=== PATIENT | female | born 1960 | race Caucasian/White ===

== ENCOUNTER 2020-09-17 08:23 | Outpatient (REF) | payer BC, SELFPAY ==
[2020-09-17 08:54] LABS: MANUAL DIFF FLAG NO
[2020-09-17 08:57] LABS: Basophils Percent Auto 0.5 % (0-2); Eosinophils Absolute Auto 0.1 X10*3/uL (0.0-0.4); Eosinophils Percent Auto 1.3 % (0-4); Hemoglobin 13.5 g/dl (12.0-16.0); Imm Gran Abs Auto 0.02 X10*3/uL (0.00-0.03); Imm Gran Pct Auto 0.4 % (0.0-0.4); Lymphocytes Absolute Auto 2.4 X10*3/uL (1.2-4.9); Lymphocytes Percent Auto 43.1 % (20-40); Mean Corpuscular HGB Conc 32.9 g/dl (31.0-35.0); Mean Corpuscular Hemoglobin 30.2 pg (27.0-33.0); Mean Corpuscular Volume 91.7 fL (80-98); Mean Platelet Volume 9.1 fL (9.4-12.3); Monocytes Absolute Auto 0.4 X10*3/uL (0.1-1.2); Neutrophils Absolute Auto 2.6 X10*3/uL (2.0-8.3); Neutrophils Percent Auto 47.7 % (45-73); Platelet Count 226 X10*3/uL (160-400); Red Blood Count 4.47 X10*6/uL (4.20-5.50); Red Cell Distribution Width 12.2 % (11.0-16.0); White Blood Count 5.5 X10*3/uL (4.8-10.8)
[2020-09-17 08:58] LABS: Glucose Urine UA NEG (NEG); Leukocyte Esterase Urine 2+ (NEG); Nitrite Urine NEG (NEG); Specific Gravity - Urine 1.015 (1.005-1.025); Urine Blood NEG (NEG); Urine Ketones NEG (NEG); Urine Protein NEG (NEG-TRACE)
[2020-09-17 08:59] LABS: Appearance Urine CLEAR; Color Urine YELLOW
[2020-09-17 09:13] LABS: Estimated Average Glucose 108 mg/dL; Hemoglobin A1c % 5.4 %
[2020-09-17 09:15] LABS: Alanine Aminotransferase 32 U/L (0-31); Albumin Level 4.5 g/dL (3.5-5.0); Alkaline Phosphatase 107 U/L (39-117); Anion Gap 12 (12-20); Aspartate Amino Transferase 23 U/L (5-31); Bilirubin Total 0.5 mg/dL (0.0-1.0); Blood Urea Nitrogen 14 mg/dL (9-16); Calcium 9.2 mg/dL (8.4-10.2); Carbon Dioxide 27 mmol/L (22-29); Chloride 105 mmol/L (96-108); Cholesterol 256 mg/dL; Estimated Glomerular Filt Rate > 60; Glucose Fasting 97 mg/dL (60-99); HDL Cholesterol 55 mg/dL; LDL Cholesterol Calculated 154 mg/dl; Potassium 3.8 mmol/l (3.3-5.1); Sodium 140 mmol/L (135-145); Total Protein 7.4 g/dL (6.5-8.0); Triglycerides 237 mg/dL
[2020-09-17 09:17] LABS: RBC Urine 0 /HPF (0); Squamous Epithelial Cell Urine TRACE /LPF
[2020-09-17 09:36] LABS: Thyroid Stimulating Hormone 0.93 uIU/mL (0.32-4.0)
== END 2020-09-17 08:24 | disposition home or self-care (01) ==
LOC: HO.LAB 08:23
PROVIDERS: PCP Physician Assistant; Visit Provider Physician Assistant
DX: E78.00 Pure hypercholesterolemia, unspecified (principal); Z13.1 Encounter for screening for diabetes mellitus; Z13.29 Encounter for screening for other suspected endocrine disorder
CPT/HCPCS: 36415; 80053; 80061; 81001; 83036; 84443; 85025

== ENCOUNTER 2021-09-26 08:38 | Outpatient (REF) | payer BC, SELFPAY ==
[2021-09-26 09:20] LABS: Hematocrit 40.7 % (37.0-47.0); Hemoglobin 13.4 g/dl (12.0-16.0); Mean Corpuscular HGB Conc 32.9 g/dl (31.0-35.0); Mean Corpuscular Hemoglobin 29.7 pg (27.0-33.0); Mean Corpuscular Volume 90.2 fL (80.0-98.0); Mean Platelet Volume 9.2 fL (9.4-12.3); Platelet Count 240 X10*3/uL (160-400); Red Blood Count 4.51 X10*6/uL (4.20-5.50); Red Cell Distribution Width 12.3 % (11.0-16.0); White Blood Count 5.8 X10*3/uL (4.8-10.8)
[2021-09-26 09:55] LABS: Alanine Aminotransferase 31 U/L (0-31); Albumin Level 4.5 g/dL (3.5-5.0); Alkaline Phosphatase 99 U/L (39-117); Anion Gap 11 (12-20); Aspartate Amino Transferase 25 U/L (5-31); Bilirubin Total 0.4 mg/dL (0.0-1.0); Blood Urea Nitrogen 14 mg/dL (9-16); Calcium 9.8 mg/dL (8.4-10.2); Carbon Dioxide 27 mmol/L (22-29); Chloride 106 mmol/L (96-108); Cholesterol 264 mg/dL; Estimated Glomerular Filt Rate > 60; Glucose Fasting 101 mg/dL (60-99); HDL Cholesterol 56 mg/dL; LDL Cholesterol Calculated 171 mg/dl; Sodium 140 mmol/L (135-145); Total Protein 7.3 g/dL (6.5-8.0); Triglycerides 189 mg/dL
[2021-09-26 10:20] LABS: TSH reflex Free T4 0.81 uIU/mL (0.32-4.0)
== END 2021-09-26 08:39 | disposition home or self-care (01) ==
LOC: HO.LAB 08:38
PROVIDERS: PCP Internal Medicine; Visit Provider Physician Assistant
DX: I10 Essential (primary) hypertension (principal); E78.2 Mixed hyperlipidemia
CPT/HCPCS: 36415; 80053; 80061; 84443; 85027

== ENCOUNTER 2022-02-24 08:16 | Outpatient (REF) | payer BC, SELFPAY ==
[2022-02-24 09:47] LABS: Hemoglobin 12.9 g/dl (12.0-16.0); Mean Corpuscular HGB Conc 32.3 g/dl (31.0-35.0); Mean Corpuscular Hemoglobin 29.5 pg (27.0-33.0); Mean Corpuscular Volume 91.5 fL (80.0-98.0); Mean Platelet Volume 9.3 fL (9.4-12.3); Platelet Count 242 X10*3/uL (160-400); Red Blood Count 4.37 X10*6/uL (4.20-5.50); Red Cell Distribution Width 12.3 % (11.0-16.0)
[2022-02-24 10:10] LABS: Estimated Average Glucose 108 mg/dL; Hemoglobin A1c % 5.4 %
[2022-02-24 10:21] LABS: Alanine Aminotransferase 27 U/L (0-31); Albumin Level 4.4 g/dL (3.5-5.0); Alkaline Phosphatase 98 U/L (39-117); Anion Gap 11 (12-20); Aspartate Amino Transferase 20 U/L (5-31); Bilirubin Total 0.6 mg/dL (0.0-1.0); Blood Urea Nitrogen 15 mg/dL (9-16); Calcium 9.6 mg/dL (8.4-10.2); Carbon Dioxide 27 mmol/L (22-29); Chloride 105 mmol/L (96-108); Cholesterol 245 mg/dL; Estimated Glomerular Filt Rate > 60; Glucose Fasting 93 mg/dL (60-99); HDL Cholesterol 59 mg/dL; LDL Cholesterol Calculated 171 mg/dl; Potassium 4.2 mmol/L (3.3-5.1); Sodium 139 mmol/L (135-145); Total Protein 7.4 g/dL (6.5-8.0); Triglycerides 76 mg/dL
[2022-02-24 10:42] LABS: TSH reflex Free T4 0.89 uIU/mL (0.32-4.0)
== END 2022-02-24 08:17 | disposition home or self-care (01) ==
LOC: HO.LAB 08:16
PROVIDERS: PCP Internal Medicine; Visit Provider Physician Assistant
DX: Z00.00 Encounter for general adult medical examination without abnormal findings (principal); Z13.220 Encounter for screening for lipoid disorders; Z13.29 Encounter for screening for other suspected endocrine disorder
CPT/HCPCS: 36415; 80053; 80061; 83036; 84443; 85027

== ENCOUNTER 2022-12-08 08:32 | Outpatient (REF) | payer BC, SELFPAY ==
[2022-12-08 08:49] LABS: Hematocrit 43.7 % (37.0-47.0); Hemoglobin 14.2 g/dl (12.0-16.0); Mean Corpuscular HGB Conc 32.5 g/dl (31.0-35.0); Mean Corpuscular Hemoglobin 29.4 pg (27.0-33.0); Mean Corpuscular Volume 90.5 fL (80.0-98.0); Platelet Count 246 X10*3/uL (160-400); Red Blood Count 4.83 X10*6/uL (4.20-5.50); Red Cell Distribution Width 12.4 % (11.0-16.0); White Blood Count 6.2 X10*3/uL (4.8-10.8)
[2022-12-08 09:25] LABS: Alanine Aminotransferase 27 U/L (0-31); Albumin Level 4.7 g/dL (3.5-5.0); Alkaline Phosphatase 111 U/L (39-117); Anion Gap 13 (12-20); Aspartate Amino Transferase 22 U/L (5-31); Bilirubin Total 0.6 mg/dL (0.0-1.0); Blood Urea Nitrogen 13 mg/dL (9-16); Calcium 9.5 mg/dL (8.4-10.2); Carbon Dioxide 28 mmol/L (22-29); Chloride 105 mmol/L (96-108); Cholesterol 243 mg/dL; Estimated Glomerular Filt Rate > 60; Glucose Fasting 97 mg/dL (60-99); HDL Cholesterol 58 mg/dL; LDL Cholesterol Calculated 165 mg/dl; Sodium 142 mmol/L (135-145); Total Protein 7.4 g/dL (6.5-8.0); Triglycerides 104 mg/dL
[2022-12-08 09:44] LABS: TSH reflex Free T4 0.99 uIU/mL (0.32-4.0)
== END 2022-12-08 08:33 | disposition home or self-care (01) ==
LOC: HO.LAB 08:32
PROVIDERS: PCP Internal Medicine; Visit Provider Physician Assistant
DX: Z13.220 Encounter for screening for lipoid disorders (principal); Z13.29 Encounter for screening for other suspected endocrine disorder; I10 Essential (primary) hypertension; E78.2 Mixed hyperlipidemia
CPT/HCPCS: 36415; 80053; 80061; 84443; 85027

== ENCOUNTER 2023-07-27 08:22 | Outpatient (REF) | payer BC, SELFPAY ==
[2023-07-27 08:39] LABS: Hematocrit 39.6 % (37.0-47.0); Mean Corpuscular HGB Conc 32.8 g/dl (31.0-35.0); Mean Corpuscular Hemoglobin 29.7 pg (27.0-33.0); Mean Corpuscular Volume 90.6 fL (80.0-98.0); Mean Platelet Volume 9.1 fL (9.4-12.3); Platelet Count 221 X10*3/uL (160-400); Red Blood Count 4.37 X10*6/uL (4.20-5.50); Red Cell Distribution Width 12.2 % (11.0-16.0); White Blood Count 5.6 X10*3/uL (4.8-10.8)
[2023-07-27 09:27] LABS: Creatinine Urine 88.85 mg/dL; Microalbum/Creatinine Ratio Ur 6.7 ug/mg cr (<30)
[2023-07-27 09:27] LABS: Alanine Aminotransferase 24 U/L (0-31); Albumin Level 4.4 g/dL (3.5-5.0); Alkaline Phosphatase 108 U/L (39-117); Anion Gap 13 (12-20); Aspartate Amino Transferase 21 U/L (5-31); Bilirubin Total 0.4 mg/dL (0.0-1.0); Blood Urea Nitrogen 13 mg/dL (9-16); Calcium 9.8 mg/dL (8.4-10.2); Carbon Dioxide 26 mmol/L (22-29); Chloride 107 mmol/L (96-108); Cholesterol 222 mg/dL (<200); Estimated Glomerular Filt Rate > 60; Glucose Fasting 96 mg/dL (60-99); HDL Cholesterol 57 mg/dL (>40); LDL Cholesterol Calculated 149 mg/dL (<100); Potassium 3.7 mmol/L (3.3-5.1); Sodium 142 mmol/L (135-145); Total Protein 7.5 g/dL (6.5-8.0); Triglycerides 81 mg/dL (<150)
[2023-07-27 09:45] LABS: TSH reflex Free T4 0.83 uIU/mL (0.32-4.0)
== END 2023-07-27 08:23 | disposition home or self-care (01) ==
LOC: HO.LAB 08:22
PROVIDERS: PCP Physician Assistant; Visit Provider Physician Assistant
DX: I10 Essential (primary) hypertension (principal); E78.2 Mixed hyperlipidemia
CPT/HCPCS: 36415; 80053; 80061; 82043; 82570; 84443; 85027

== ENCOUNTER 2023-07-29 14:06 | Outpatient (AMB) | payer BC, SELFPAY ==
--- NOTE | 2023-07-29 14:09 | A.OFFPC_ITS ---
Vital Signs 07/29/23 14:10 Height 5 ft Weight 143 lb 4 oz BMI 28.0 BP 118/70 Blood Pressure Location Lt brachial Position Sitting Pulse 95 Pulse Source Pulse Oximeter Pulse Oximetry (%) 98 Oxygen Delivery Method Room Air Intake Visit Reasons: f/u HLD Intake Note: Patient is here to follow up on HLD. Lab results. Complaint of right shoulder pain ongoing for a month worse at night time Hand Plug Shaper Required: No Relish Maker: Not Required per policy Accompanied by: Self / Same As Patient Allergies No Known Allergies Allergy (Verified 07/29/23 14:18) Medication List - Last Reconciled 07/29/23 by Jag Paredes PA-C ascorbic acid (vitamin C) 500 mg PO DAILY blood pressure test kit-large As directed calcium carbonate-vitamin D3 600 mg-12.5 mcg (500 unit) (Calcium 600 with Vitamin D3) caps PO BID omega-3 fatty acids (Fish Oil Concentrate) 1,000 mg PO DAILY vitamin B complex (B Complex-Vitamin B12 tablet) 1 tab PO DAILY Tobacco use date assessed: 07/29/23 Dental Screening Dental Screen Date: 07/29/23 Did you have a dental visit in the last 12 months?: Yes Did you have a dental problem in the last 6 months where you did not have access to dental care?: No Was dental information given to patient?: Patient has dentist HPI f/u HLD HPI Details Daria is 63 y/o F here today for follow-up visit l. Pt has a pmhx significant for GERD, Hyperchol. Concern--> reports she has been dealing lot of job stress which in those moments does experience some chest pain. She attributes this to her stress. Report having higher blood pressures at these times as well.. We did discuss possibly getting an EKG and cardiac stress test though would like to hold off for now. otherwise no family history of coronary artery disease and her chest discomforts or only evident during times of high stress. ?? .. Hyperlipidemia:? Most recent lipid panel improved.? Patient has been working extensively on lifestyle to help reduce her cholesterol and triglycerides. ?Of note has lost weight since last office visit. . Elevated blood pressure reading:? Has been monitoring her blood pressure at home and is getting readings of 120-130 systolic.. ? Today in office blood pressure acceptable.? Likely has an element of white coat hypertension.? Will continue to work on lifestyle and forgo starting low- dose blood pressure medication at this time. Of note patient did emergency room visit and October of 2022 due to elevated blood pressure readings. She attributes her elevated blood pressure to increased stress in her life and her job. Laboratory Tests 07/27/23 07/27/23 07/27/23 08:29 08:29 08:30 RBC 4.37 Creatinine 0.62 Cholesterol 222 H LDL Cholesterol, C alc 149 H TSH 0.83 Urine Microalbumin 6.0 PFSH Surgical History History of D&C History of hysterectomy Family History Father No problems noted. Mother Stroke Family/Other Breast cancer Social History Housing: House Alcohol intake: current Alcohol intake frequency: holidays/special occasions only Patient Tobacco Use Status: Never used Tobacco Tobacco use type: Cigarette e-Cigarette/Vaping Use: Never Used Second Hand Smoke Exposure: No Current occupational status: employed Current occupation: [employer] Cognitive needs: No Hearing needs: No Vision needs: Yes Questionnaire Thrive Questionnaire Date Thrive assessed: 12/11/22 MELODIE-7 AMB Questionnaire MELODIE-7 Date MELODIE - 7 assessed: 12/11/22 Source: Developed by Drs. Jordy Hampton, Hannah Reveles, Yusef Mejias and colleagues, with an educational teddy from [employer]. Review of Systems Const Denies headache(s) Eyes Denies loss of vision ENT Denies vertigo, Denies dizziness, Denies headache(s) and Denies sore throat Card Denies chest pain, Denies leg edema and Denies lightheadedness Resp Denies cough, Denies hemoptysis and Denies wheezing GI Denies abdominal pain, Denies melena, Denies constipation, Denies diarrhea and Denies vomiting Denies urinary frequency, Denies dysuria and Denies urinary urgency Musc Denies arthralgias, Denies joint swelling, Denies numbness and Denies tingling Neuro Denies Abnormal speech present, Denies behavioral changes, Denies vertigo, Denies dizziness, Denies headache(s), Denies loss of vision, Denies memory loss, Denies numbness and Denies tingling Psych Denies anxiety, Denies behavioral changes, Denies depression, Denies memory loss and Denies panic attacks Paras/Lymph Denies easy bleeding and Denies easy bruising Aller/Immun Denies wheezing Physical exam (Primary Care) Vital Signs: Last Vital Signs Pulse 95 07/29/23 14:10 BP 118/70 07/29/23 14:10 Pulse Ox 98 07/29/23 14:10 Oxygen Delivery Method Room Air 07/29/23 14:10 BMI result Body Mass Index 28.0 Tobacco/Smoking Status: Tobacco use Status Tobacco use date assessed 07/29/23 07/29/23 14:14 Patient Tobacco Use Status Never used Tobacco 07/29/23 14:14 Tobacco use type Cigarette 07/29/23 14:14 e-Cigarette/Vaping Use Never Used 07/29/23 14:14 Thrive Assessment: Date of Thrive Assessment Date Thrive assessed 12/11/22 07/29/23 14:14 Const General: healthy appearing, no acute distress, alert and awake Nutritional Appearance: well nourished Orientation/consciousness: oriented to person, oriented to place and oriented to time HENMT Ears: TM's normal bilaterally General nose exam: Normal nasal mucous membranes and turbinates present Eyes Conjunctivae: conjunctivae normal Sclerae: sclerae normal Pupils: Equal, round and reactive pupils present Neck Neck: Yes no lymphadenopathy and Yes no JVD Thyroid: Thyroid normal Carotids: no bruits Resp Effort & Inspection: normal respiratory effort and not tachypneic Auscultation: no crackles, no rales, no rhonchi and no wheezes Cardio Rate: regular rate Rhythm: regular rhythm Heart sounds: no murmurs and normal S1 and S2 GI Palpation (GI): Soft to palpation, nontender, no hepatomegaly and no splenomegaly Auscultation: normal bowel sounds Skin General skin exam: no rashes or lesions noted and dry skin Neuro General: oriented to person, oriented to place and oriented to time Cranial nerves: Yes Equal, round and reactive pupils present Speech: No Abnormal speech present Gait exam (Neuro): Normal gait present Motor exam (neuro): no tremor noted Extrem Right upper extremity: full ROM Left upper extremity: full ROM Right lower extremity: full ROM; no edema Left lower extremity: full ROM; no edema Psych Mental Status: mental status grossly normal Speech and movement: Normal speech and movement present Affect: normal affect Attitude: cooperative Thought process: Normal thought process present Assessment and Plan Assessment & Plan (1) Hyperlipidemia: Code(s): E78.5 - Hyperlipidemia, unspecified Qualifiers: Hyperlipidemia type: mixed hyperlipidemia Qualified Code(s): E78.2 - Mixed hyperlipidemia Plan: Patient's fasting lipid panel showing much improved total cholesterol. She continues to work on lifestyle modifications to reduce her cholesterol in her diet. She is not interested in starting any statin therapy for primary prevention of CV disease. Goal LDL to be below 160 (2) HTN (hypertension): Code(s): I10 - Essential (primary) hypertension Qualifiers: Hypertension type: primary hypertension Qualified Code(s): I10 - Essential (primary) hypertension Plan: Patient has a history of intermittent elevated blood pressures. Recently had elevations in a posture pressure of to 160 that she attributes to increased stress in her life. She has been monitoring blood pressure on a daily basis since and notes 110s to 130 systolic consistently. Will hold off on starting antihypertensive medication and patient will continue to work on lifestyle modifications on reducing salt in her diet and stress in her life. Goal blood pressure to remain below 140/90 (3) Right shoulder pain: Code(s): M25.511 - Pain in right shoulder Qualifiers: Chronicity: unspecified Qualified Code(s): M25.511 - Pain in right shoulder Plan: Reports having right shoulder pain that radiates down to her elbow and forearm. She reports when she moves her elbow more often the pain gets better. Has been using topical analgesics which has been helpful. She is interested in getting x-ray to evaluate for arthritis. (4) Chest pain: Code(s): R07.9 - Chest pain, unspecified Qualifiers: Chest pain type: unspecified Qualified Code(s): R07.9 - Chest pain, unspecified Plan: As per HPI patient has been experiencing a few episodes of chest pain in the setting of increased stress and anxiety. We discussed possibly getting EKG and cardiac stress test though patient would like to hold off for now Orders: Orders Complete Blood Count no Diff 07/29/23 E78.2 - Mixed hyperlipidemia XR shoulder RT 1V 07/29/23 M25.511 - Pain in right shoulder Microalbumin, Random (w Creat) 07/29/23 I10 - Essential (primary) hypertension Comprehensive [place]. Panel Fast 07/29/23 E78.2 - Mixed hyperlipidemia Coding Level of Care Code Est Pt Level 4 (76607) Diagnoses Mixed hyperlipidemia E78.2 Hyperlipidemia type: mixed hyperlipidemia Primary hypertension I10 Hypertension type: primary hypertension Right shoulder pain, unspecified chronicity M25.511 Chronicity: unspecified Chest pain, unspecified type R07.9 Chest pain type: unspecified
[2023-07-29 14:10] VITALS: BP 118/70; PULSE 95; O2SAT 98; BMI 28.0
== END 2023-07-29 14:38 | disposition home or self-care (01) ==
PROVIDERS: PCP Internal Medicine; Visit Provider Physician Assistant
DX: E78.2 Mixed hyperlipidemia (principal); I10 Essential (primary) hypertension; M25.511 Pain in right shoulder; R07.9 Chest pain, unspecified
CPT/HCPCS: 99214

== ENCOUNTER 2023-08-01 11:30 | Outpatient (REF) | payer BC, SELFPAY ==
--- NOTE | ~2023-08-01 | XR_ITS ---
EXAMINATION: XR SHOULDER, RIGHT CLINICAL INFORMATION: Pain in right shoulder COMPARISON: Right shoulder 10/03/2018 TECHNIQUE: AP external rotation, Grashey, scapular Y, and axillary views of the right shoulder. FINDINGS: The bones intact. No fracture or dislocation. Glenohumeral and acromioclavicular alignment is anatomic. The glenohumeral joint is intact. The acromiohumeral interval is maintained. Acromioclavicular joint is normal in appearance. No abnormal soft tissue calcifications. XR/XR shoulder RT 1V IMPRESSION: No bony abnormality.
== END 2023-08-01 11:31 | disposition home or self-care (01) ==
LOC: HO.XRAY 11:30
PROVIDERS: PCP Physician Assistant; Visit Provider Physician Assistant
DX: M25.511 Pain in right shoulder (principal)
CPT/HCPCS: 73020

== ENCOUNTER 2023-12-14 08:25 | Outpatient (REF) | payer BC, SELFPAY ==
[2023-12-14 12:02] LABS: Hematocrit 41.9 % (37.0-47.0); Hemoglobin 13.9 g/dl (12.0-16.0); Mean Corpuscular HGB Conc 33.2 g/dl (31.0-35.0); Mean Corpuscular Hemoglobin 30.3 pg (27.0-33.0); Mean Corpuscular Volume 91.3 fL (80.0-98.0); Mean Platelet Volume 9.7 fL (9.4-12.3); Platelet Count 241 X10*3/uL (160-400); Red Blood Count 4.59 X10*6/uL (4.20-5.50); Red Cell Distribution Width 12.4 % (11.0-16.0); White Blood Count 5.8 X10*3/uL (4.8-10.8)
[2023-12-14 12:29] LABS: Alanine Aminotransferase 25 U/L (0-31); Albumin Level 4.6 g/dL (3.5-5.0); Alkaline Phosphatase 105 U/L (39-117); Anion Gap 11 (12-20); Aspartate Amino Transferase 20 U/L (5-31); Bilirubin Total 0.5 mg/dL (0.0-1.0); Blood Urea Nitrogen 14 mg/dL (9-16); Calcium 9.6 mg/dL (8.4-10.2); Carbon Dioxide 27 mmol/L (22-29); Chloride 108 mmol/L (96-108); Estimated Glomerular Filt Rate > 60; Glucose Fasting 95 mg/dL (60-99); Potassium 4.1 mmol/L (3.3-5.1); Sodium 142 mmol/L (135-145); Total Protein 7.8 g/dL (6.5-8.0)
[2023-12-14 13:05] LABS: Creatinine Urine 82.07 mg/dL; Microalbum/Creatinine Ratio Ur 10.9 ug/mg cr (<30)
== END 2023-12-14 08:26 | disposition home or self-care (01) ==
LOC: HO.HMGCLDS 08:25
PROVIDERS: PCP Physician Assistant; Visit Provider Physician Assistant
DX: E78.2 Mixed hyperlipidemia (principal); I10 Essential (primary) hypertension
CPT/HCPCS: 36415; 80053; 82043; 82570; 85027

== ENCOUNTER 2023-12-17 08:01 | Outpatient (AMB) | payer BC, SELFPAY ==
--- NOTE | 2023-12-17 08:08 | MHC.PC.OV ---
Vital Signs 12/17/23 08:09 Height 5 ft Weight 146 lb BMI 28.5 BP 130/80 Blood Pressure Location Lt brachial Position Sitting Pulse 89 Pulse Source Pulse Oximeter Pulse Oximetry (%) 99 Oxygen Delivery Method Room Air Intake Visit Reasons: Annual Exam Intake Note: Patient here for a physical exam Felt Checker Required: No Accompanied by: Self / Same As Patient Allergies No Known Allergies Allergy (Verified 12/17/23 08:15) Medication List - Last Reconciled 12/17/23 by CAMERON Salgado-Guillermo ascorbic acid (vitamin C) 500 mg PO DAILY blood pressure test kit-large As directed calcium carbonate-vitamin D3 600 mg-12.5 mcg (500 unit) (Calcium 600 with Vitamin D3) caps PO BID omega-3 fatty acids (Fish Oil Concentrate) 1,000 mg PO DAILY vitamin B complex (B Complex-Vitamin B12 tablet) 1 tab PO DAILY Tobacco use date assessed: 12/17/23 Dental Screening Dental Screen Date: 12/17/23 Did you have a dental visit in the last 12 months?: Yes Did you have a dental problem in the last 6 months where you did not have access to dental care?: No Was dental information given to patient?: Patient has dentist HPI Annual Exam HPI Details Daria is 63 y/o F here today for a routine annual physical Pt has a pmhx significant for GERD, hyperlipidemia. Concern--> continues to feel somewhat stressed out due to her stressful job. She plans on retiring this July 2024. ?? .. Hyperlipidemia:? Most recent lipid panel improved.? Patient has been working extensively on lifestyle to help reduce her cholesterol and triglycerides. ?Of note has lost weight since last office visit. . Elevated blood pressure reading:? Has been monitoring her blood pressure at home and is getting readings of 120-130 systolic.. ? Today in office blood pressure acceptable.? Likely has an element of white coat hypertension.? Will continue to work on lifestyle and forgo starting low-dose blood pressure medication at this time. ?Colonoscopy: 2016-normal repeat in 10 years ? mammo: gets mamm[facility] ? 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 Has had partial hysterectomy. // Vaccine: Declines flu, up-to-date with Tdap, Needs Shingles vaccine Laboratory Tests 03/11/23 10/28/23 03/16/24 08:37 08:29 09:08 RBC 4.59 Creatinine Cholesterol 243 222 H LDL Cholesterol, C alc 165 149 H Urine Microalbumin 12/14/23 09:08 RBC Creatinine 0.72 Cholesterol LDL Cholesterol, C alc Urine Microalbumin 9.0 [facility] Medical History (Updated 12/18/23 @ 07:24 by Jag Paredes PA-C) Right shoulder pain Surgical History History of D&C History of hysterectomy Family History Father No problems noted. Mother Stroke Family/Other Breast cancer Social History (Updated 12/17/23 @ 08:21 by Jag Paredes PA-C) Housing: House Alcohol intake: current Alcohol intake frequency: holidays/special occasions only Patient Tobacco Use Status: Never used Tobacco e-Cigarette/Vaping Use: Never Used Second Hand Smoke Exposure: No service: No Current occupational status: employed Current occupation: [employer] Current occupational exposures/hazards: No Cognitive needs: No Hearing needs: No Vision needs: Yes Questionnaire PHQ-9 Over the last 2 weeks, how often have you been bothered by any of the following problems? 1. Little interest or pleasure in doing things: not at all 2. Feeling down, depressed, or hopeless: not at all 3. Trouble falling or staying asleep, or sleeping too much: not at all 4. Feeling tired or having little energy: not at all 5. Poor appetite or overeating: not at all 6. Feeling bad about yourself - or that you are a failure or have let yourself or your family down: not at all 7. Trouble concentrating on things, such as reading the newspaper or watching television: not at all 8. Moving or speaking so slowly that other people could have noticed. Or the opposite - being so fidgety or restless that you have been moving around a lot more than usual: not at all 9. Thoughts that you would be better off or of hurting yourself in some way: not at all Total score: 0 Depression Screening Interpretation: Negative Depression Screening Done: Yes 74852 - PHQ-9 Billing: Yes Source: Developed by Drs. Jordy L. Berta, Yusef Benson and colleagues, with an educational teddy from [employer]. Thrive Questionnaire Date Thrive assessed: 12/17/23 I am a: Patient What is your living situation today?: I have a steady place to live Within the past 12 months, did the food you bought not last and you didn't have the money to get more?: Never true Within the past 12 months, did you worry whether your food would run out before you got money to buy more?: Never true Do you have trouble paying for medicines?: No Do you have trouble getting transportation to medical appointments?: No Do you have trouble paying your heating and electricity bill?: No Do you have trouble taking care of your child, family member or friend?: No Do you have trouble with day-to-day activities such as bathing, preparing meals, shopping, managing finances, etc.?: No Are you currently unemployed and looking for a job?: No Are you interested in more education?: No Please select the resources that you would like help with: None Currently or been in a relationship where the following occur: no concerns reported THRIVE Score: 0 AUDIT C Alcohol Use Questionnaire (AUDIT-C) 1. How often do you have a drink containing alcohol?: Monthly or less 2. How many drinks containing alcohol do you have on a typical day when you are drinking?: 1 or 2 3. How often do you have six or more drinks on one occasion?: Never Total Score: 1 MELODIE-7 AMB Questionnaire MELODIE-7 Date MELODIE - 7 assessed: 12/17/23 Feeling nervous, anxious, or on edge: 0 = Not at all Not being able to stop or control worryin = Not at all Worrying too much about different things: 0 = Not at all Trouble relaxin = Not at all Being so restless that it is hard to sit still: 0 = Not at all Becoming easily annoyed or irritable: 0 = Not at all Feeling afraid as if something awful might happen: 0 = Not at all Total MELODIE-7 score (0-4 normal; 5-9 mild; 10-14 moderate; 15-21 severe): 0 Source: Developed by Drs. Jordy Hampton, Yusef Benson and colleagues, with an educational teddy from [employer]. MELODIE-7 Assessment Billing MELODIE-7 Assessment Tool: MELODIE-7 Assessment 20475 Review of Systems Const Denies body aches, Denies chills, Denies excessive sweating, Denies fatigue, Denies fever(s) and Denies headache(s) Eyes Denies blurry vision ENT Denies dysphagia, Denies vertigo, Denies dizziness, Denies headache(s), Denies hearing loss and Denies tinnitus Card Denies chest pain, Denies chest pain with activity, Denies syncope, Denies irregular heart rhythm and Denies dyspnea Resp Denies chest congestion, Denies cough, Denies hemoptysis, Denies dyspnea and Denies wheezing GI Denies abdominal pain, Denies melena, Denies hematochezia, Denies coffee ground emesis, Denies dysphagia, Denies diarrhea, Denies nausea and Denies vomiting Denies urinary frequency, Denies dysuria, Denies urinary hesitancy and Denies urinary urgency Musc Denies arthralgias, Denies limited range of motion, Denies muscle cramps and Denies muscle weakness Skin/Breast Denies rash and Denies skin ulcer Neuro Denies Abnormal speech present, Denies confusion, Denies vertigo, Denies dizziness, Denies syncope, Denies headache(s), Denies memory loss and Denies seizure-like activity Psych Denies anxiety, Denies confusion, Denies depression, Denies memory loss, Denies panic attacks and Denies paranoia Endo Denies excessive sweating, Denies fatigue, Denies flushing, Denies polydipsia and Denies polyuria Aller/Immun Denies wheezing Physical exam (Primary Care) Vital Signs: Last Vital Signs Pulse 89 12/17/23 08:09 BP 130/80 12/17/23 08:09 Pulse Ox 99 12/17/23 08:09 Oxygen Delivery Method Room Air 12/17/23 08:09 BMI result Body Mass Index 28.5 Tobacco/Smoking Status: Tobacco use Status Tobacco use date assessed 12/17/23 12/17/23 08:14 Patient Tobacco Use Status Never used Tobacco 12/17/23 08:20 Tobacco use type 12/17/23 08:14 e-Cigarette/Vaping Use Never Used 12/17/23 08:20 PHQ-9: PHQ-9 Score PHQ-9: Total score 0 12/17/23 08:18 Depression Screening Interpretation: Negative Thrive Assessment: Date of Thrive Assessment Date Thrive assessed 12/17/23 12/17/23 08:14 Currently or been in a relationship where the following occur: no concerns reported Const General: cooperative, comfortable, no acute distress, alert and awake; No confusion Orientation/consciousness: oriented to person, oriented to place, patient oriented x3 and No confusion HENMT Head: Yes normocephalic Ears: external ears normal and TM's normal bilaterally Face and sinus: No sinus tenderness Mouth: Normal oral and palatal mucosa present and tongue normal Teeth and gingiva: dentition normal and gingiva normal Throat: Yes posterior oropharynx normal, Yes tonsils normal and Yes uvula midline Eyes Conjunctivae: conjunctivae normal Sclerae: sclerae normal Pupils: Equal, round and reactive pupils present EOM: EOMs intact bilaterally Direct Ophthalmoscopy: No no photophobia Neck Neck: Yes no lymphadenopathy, No tender and Yes no JVD Thyroid: Thyroid normal Carotids: no bruits Chest Chest palpation & inspection: no tenderness Resp Effort & Inspection: normal respiratory effort, no audible wheezes, not labored and no stridor Auscultation: no crackles, no rales, no rhonchi and no wheezes Cardio Jugular venous distension: no JVD Rate: regular rate, not bradycardic and not tachycardic Rhythm: regular rhythm Bruits: no carotid bruits Peripheral pulses: Peripheral pulses 2+ throughout GI Inspection: Yes normal to inspection, No abdominal wall ecchymosis and No visible herniation Palpation (GI): Soft to palpation, nontender, no guarding, not rigid and No hepatosplenomegaly present Auscultation: normoactive bowel sounds General: Yes no CVA tenderness Back/Spine/Pelvis Back: no CVA tenderness and No back tenderness Cervical Spine: cervical ROM normal Thoracic/Lumbar Spine: thoracic and lumbar spine normal to inspection, straight leg raise negative bilaterally, No thoraco-lumbar ROM limited and No lumbar spinal tenderness Skin Lesions: no lesions Rashes: no rashes Wounds: no wounds Neuro General: oriented to person, oriented to place, patient oriented x3, CN's II-XI intact bilaterally and No confusion Cranial nerves: Yes Equal, round and reactive pupils present and Yes Normal accommodation reflex present Cognition (Neuro): normal cognition Speech: No Abnormal speech present Gait exam (Neuro): Normal gait present Motor exam (neuro): 5/5 motor strength present throughout Extrem Right upper extremity: full ROM; no cyanosis Left upper extremity: full ROM; no cyanosis Right lower extremity: no edema Left lower extremity: no edema Psych Appearance: grossly normal Mental Status: mental status grossly normal Affect: normal affect Attitude: cooperative Thought process: Normal thought process present Assessment and Plan Assessment & Plan (1) Annual physical exam: Code(s): Z00.00 - Encounter for general adult medical examination without abnormal findings (2) Hyperlipidemia: Code(s): E78.5 - Hyperlipidemia, unspecified Qualifiers: Hyperlipidemia type: mixed hyperlipidemia Qualified Code(s): E78.2 - Mixed hyperlipidemia Plan: Patient's fasting lipid panel showing much improved total cholesterol. She continues to work on lifestyle modifications to reduce her cholesterol in her diet. She is not interested in starting any statin therapy for primary prevention of CV disease. Goal LDL to be below 160 (3) HTN (hypertension): Code(s): I10 - Essential (primary) hypertension Qualifiers: Hypertension type: primary hypertension Qualified Code(s): I10 - Essential (primary) hypertension Plan: Patient has a history of intermittent elevated blood pressures. Today's blood pressure in office acceptable.. Recently had elevations in a posture pressure of to 160 that she attributes to increased stress in her life. She has been monitoring blood pressure on a daily basis since and notes 110s to 130 systolic consistently. Will hold off on starting antihypertensive medication and patient will continue to work on lifestyle modifications on reducing salt in her diet and stress in her life. Goal blood pressure to remain below 140/90 Orders: Orders MM screening mammo BI 12/16/23 Z12.31 - Encounter for screening mammogram for malignant neoplasm of breast Comprehensive [place]. Panel Fast 12/17/23 I10 - Essential (primary) hypertension Lipid Panel 12/17/23 E78.2 - Mixed hyperlipidemia Complete Blood Count no Diff 12/17/23 I10 - Essential (primary) hypertension Coding Level of Care Code Est Pt Prev Care 40-64y(59591) Diagnoses Annual physical exam Z00.00 Mixed hyperlipidemia E78.2 Hyperlipidemia type: mixed hyperlipidemia Primary hypertension I10 Hypertension type: primary hypertension Additional Codes MELODIE-7 Assessment Billing - MELODIE-7 Assessment Tool: MELODIE-7 Assessment [id number] ([id number])
[2023-12-17 08:09] VITALS: BP 130/80; PULSE 89; O2SAT 99; BMI 28.5
== END 2023-12-17 08:45 | disposition home or self-care (01) ==
PROVIDERS: Visit Provider Physician Assistant
DX: Z00.00 Encounter for general adult medical examination without abnormal findings (principal); E78.2 Mixed hyperlipidemia; I10 Essential (primary) hypertension
CPT/HCPCS: 99396

== ENCOUNTER 2024-06-30 08:32 | Outpatient (REF) | payer BC, SELFPAY ==
[2024-06-30 10:05] LABS: Hematocrit 40.1 % (37.0-47.0); Hemoglobin 13.3 g/dl (12.0-16.0); Mean Corpuscular HGB Conc 33.2 g/dl (31.0-35.0); Mean Corpuscular Hemoglobin 30.4 pg (27.0-33.0); Mean Corpuscular Volume 91.8 fL (80.0-98.0); Mean Platelet Volume 9.6 fL (9.4-12.3); Platelet Count 242 X10*3/uL (160-400); Red Blood Count 4.37 X10*6/uL (4.20-5.50); Red Cell Distribution Width 12.2 % (11.0-16.0); White Blood Count 5.6 X10*3/uL (4.8-10.8)
[2024-06-30 10:26] LABS: Alanine Aminotransferase 23 U/L (0-31); Albumin Level 4.5 g/dL (3.5-5.0); Alkaline Phosphatase 111 U/L (39-117); Anion Gap 10 (12-20); Aspartate Amino Transferase 18 U/L (5-31); Bilirubin Total 0.4 mg/dL (0.0-1.0); Blood Urea Nitrogen 12 mg/dL (9-16); Calcium 9.6 mg/dL (8.4-10.2); Carbon Dioxide 27 mmol/L (22-29); Chloride 109 mmol/L (96-108); Cholesterol 215 mg/dL (<200); Estimated Glomerular Filt Rate > 60; Glucose Fasting 98 mg/dL (60-99); HDL Cholesterol 47 mg/dL (>40); LDL Cholesterol Calculated 132 mg/dL (<100); Potassium 3.6 mmol/L (3.3-5.1); Sodium 142 mmol/L (135-145); Total Protein 7.4 g/dL (6.5-8.0); Triglycerides 181 mg/dL (<150)
== END 2024-06-30 08:33 | disposition home or self-care (01) ==
LOC: HO.HMGCLDS 08:32
PROVIDERS: PCP Physician Assistant; Visit Provider Physician Assistant
DX: E78.2 Mixed hyperlipidemia (principal); I10 Essential (primary) hypertension
CPT/HCPCS: 36415; 80053; 80061; 85027

== ENCOUNTER 2024-07-01 08:00 | Outpatient (AMB) | payer BC, SELFPAY ==
--- NOTE | 2024-07-01 08:02 | A.OFFPC_ITS ---
Vital Signs 07/01/24 08:04 Height 5 ft Weight 146 lb BMI 28.5 BP 126/80 Blood Pressure Location Lt brachial Position Sitting Intake Visit Reasons: f/u HLD Count Room Clerk Required: No Accompanied by: Self / Same As Patient Allergies No Known Allergies Allergy (Verified 07/01/24 08:15) Medication List - Last Reconciled 07/01/24 by Jag Paredes PA-C ascorbic acid (vitamin C) 500 mg PO DAILY blood pressure test kit-large As directed calcium carbonate-vitamin D3 600 mg-12.5 mcg (500 unit) (Calcium 600 with Vitamin D3) caps PO BID omega-3 fatty acids (Fish Oil Concentrate) 1,000 mg PO DAILY vitamin B complex (B Complex-Vitamin B12 tablet) 1 tab PO DAILY Tobacco use date assessed: 12/17/23 Dental Screening Dental Screen Date: 07/01/24 Did you have a dental visit in the last 12 months?: Yes Did you have a dental problem in the last 6 months where you did not have access to dental care?: No Was dental information given to patient?: Patient has dentist HPI f/u HLD HPI Details Daria is 63 y/o F here today for a follow-up visit Pt has a pmhx significant for GERD, hyperlipidemia. ?? .. Hyperlipidemia:? Most recent lipid panel continues to improve, cholesterol still borderline.? Patient has been working extensively on lifestyle to help reduce her cholesterol and triglycerides. ?Of note has lost weight since last office visit. . Elevated blood pressure reading:? Blood pressure today in office acceptable. Has been monitoring her blood pressure at home and is getting readings of 120- 130 systolic.. Will continue to work on lifestyle and forgo starting low-dose blood pressure medication at this time. [facility] Medical History Right shoulder pain Surgical History History of D&C History of hysterectomy Family History Father No problems noted. Mother Stroke Family/Other Breast cancer Social History Housing: House Alcohol intake: current Alcohol intake frequency: holidays/special occasions only Patient Tobacco Use Status: Never used Tobacco e-Cigarette/Vaping Use: Never Used Second Hand Smoke Exposure: No service: No Current occupational status: employed Current occupation: [employer] Current occupational exposures/hazards: No Cognitive needs: No Hearing needs: No Vision needs: Yes Questionnaire Thrive Questionnaire Date Thrive assessed: 12/17/23 Are you currently unemployed and looking for a job?: No AUDIT C Alcohol Use Questionnaire (AUDIT-C) 2. How many drinks containing alcohol do you have on a typical day when you are drinking?: 1 or 2 3. How often do you have six or more drinks on one occasion?: Never Total Score: 0 MELODIE-7 AMB Questionnaire MELODIE-7 Date MELODIE - 7 assessed: 12/17/23 Source: Developed by Drs. Jordy Hampton, Hannah Reveles, Yusef Mejias and colleagues, with an educational teddy from [employer]. Review of Systems Const Denies headache(s) Eyes Denies loss of vision ENT Denies vertigo, Denies dizziness, Denies headache(s) and Denies sore throat Card Denies chest pain, Denies leg edema and Denies lightheadedness Resp Denies cough, Denies hemoptysis and Denies wheezing GI Denies abdominal pain, Denies melena, Denies constipation, Denies diarrhea and Denies vomiting Denies urinary frequency, Denies dysuria and Denies urinary urgency Musc Denies arthralgias, Denies joint swelling, Denies numbness and Denies tingling Neuro Denies Abnormal speech present, Denies behavioral changes, Denies vertigo, Denies dizziness, Denies headache(s), Denies loss of vision, Denies memory loss, Denies numbness and Denies tingling Psych Denies anxiety, Denies behavioral changes, Denies depression, Denies memory loss and Denies panic attacks Paras/Lymph Denies easy bleeding and Denies easy bruising Aller/Immun Denies wheezing Physical exam (Primary Care) Vital Signs: Last Vital Signs BP 126/80 07/01/24 08:04 BMI result Body Mass Index 28.5 Tobacco/Smoking Status: Tobacco use Status Tobacco use date assessed 12/17/23 07/01/24 08:06 Patient Tobacco Use Status Never used Tobacco 07/01/24 08:06 Tobacco use type 12/17/23 08:44 e-Cigarette/Vaping Use Never Used 07/01/24 08:06 Thrive Assessment: Date of Thrive Assessment Date Thrive assessed 12/17/23 07/01/24 08:06 Const General: healthy appearing, no acute distress, alert and awake Nutritional Appearance: well nourished Orientation/consciousness: oriented to person, oriented to place and oriented to time HENMT Ears: TM's normal bilaterally General nose exam: Normal nasal mucous membranes and turbinates present Eyes Conjunctivae: conjunctivae normal Sclerae: sclerae normal Pupils: Equal, round and reactive pupils present Neck Neck: Yes no lymphadenopathy and Yes no JVD Thyroid: Thyroid normal Carotids: no bruits Resp Effort & Inspection: normal respiratory effort and not tachypneic Auscultation: no crackles, no rales, no rhonchi and no wheezes Cardio Rate: regular rate Rhythm: regular rhythm Heart sounds: no murmurs and normal S1 and S2 GI Palpation (GI): Soft to palpation, nontender, no hepatomegaly and no splenomegaly Auscultation: normal bowel sounds Skin General skin exam: no rashes or lesions noted and dry skin Neuro General: oriented to person, oriented to place and oriented to time Cranial nerves: Yes Equal, round and reactive pupils present Speech: No Abnormal speech present Gait exam (Neuro): Normal gait present Motor exam (neuro): no tremor noted Extrem Right upper extremity: full ROM Left upper extremity: full ROM Right lower extremity: full ROM; no edema Left lower extremity: full ROM; no edema Psych Mental Status: mental status grossly normal Speech and movement: Normal speech and movement present Affect: normal affect Attitude: cooperative Thought process: Normal thought process present Office Procedures Flu Questionnaire Does the patient have a severe egg allergy?: No Immunizations Fluarix Triv [id number] (PF) 45 mcg (15 mcg x 3)/0.5 mL IM syringe Performing Provider: Jag Paredes PA-C [place] [facility] [place] [facility] [place] [facility] Documented (not given) by: PAMELA Quintanilla on 07/01/24 08:07 Reason Not Given: Patient Refused Coding Level of Care Code Est Pt Level 4 (76700) Diagnoses Mixed hyperlipidemia E78.2 Hyperlipidemia type: mixed hyperlipidemia Primary hypertension I10 Hypertension type: primary hypertension Assessment & Plan Assessment & Plan (1) Hyperlipidemia: Code(s): E78.5 - Hyperlipidemia, unspecified Category: Medical Qualifiers: Hyperlipidemia type: mixed hyperlipidemia Qualified Code(s): E78.2 - Mixed hyperlipidemia Plan: Patient's lipid panel continues to improve with lifestyle modifications. She has a low CV risk though does report her brother recently had triple bypass surgery in his 70s.. She declines my offers today to start statin therapy. she would like to work on lifestyle to reduce her cholesterol. (2) HTN (hypertension): Code(s): I10 - Essential (primary) hypertension Category: Medical Qualifiers: Hypertension type: primary hypertension Qualified Code(s): I10 - Essential (primary) hypertension Plan: Patient's blood pressure acceptable today in office. Her blood pressure has been controlled with lifestyle and dietary modifications. Goal blood pressure is to remain below 140/90 Orders: Orders Influenza [id number] Immunization Today Z23 - Encounter for immunization Comprehensive [place]. Panel Fast 6 Months I10 - Essential (primary) hypertension Lipid Panel 6 Months E78.2 - Mixed hyperlipidemia Microalbumin, Random (w Creat) 6 Months I10 - Essential (primary) hypertension Complete Blood Count no Diff 6 Months I10 - Essential (primary) hypertension Patient Instructions: Goal: Blood pressure to remain below 140/90, total cholesterol to be below 200 Barriers: Adherence to physical activity and healthy eating habits
[2024-07-01 08:04] VITALS: BP 126/80; BMI 28.5
== END 2024-07-01 08:26 | disposition home or self-care (01) ==
PROVIDERS: PCP Physician Assistant; Visit Provider Physician Assistant
DX: E78.2 Mixed hyperlipidemia (principal); I10 Essential (primary) hypertension; Z23 Encounter for immunization

== ENCOUNTER → 2024-07-01 08:00 | Outpatient (BNVA) | payer BC, SELFPAY | PROVIDERS: PCP Physician Assistant; Visit Provider Physician Assistant | DX: E78.2 Mixed hyperlipidemia (principal); I10 Essential (primary) hypertension; Z28.21 Immunization not carried out because of patient refusal | CPT/HCPCS: 90471 ==

== ENCOUNTER 2024-09-22 11:05 | Outpatient (AMB) | payer BC, SELFPAY ==
[2024-09-22 11:21] VITALS: BP 152/90; PULSE 94; O2SAT 99; BMI 28.3
--- NOTE | 2024-09-22 11:21 | A.OFFPC_ITS ---
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 Required: No Accompanied by: Self / Same As Patient Allergies No Known Allergies Allergy (Verified 09/22/24 11:25) Medication List - Last Reconciled 09/22/24 by Jag Paredes PA-C ascorbic acid (vitamin C) 500 mg PO DAILY azithromycin For 250 mg dose pack: take 500 mg today (day 1), then 250 mg for 4 days (days 2-5) PO blood pressure test kit-large As directed calcium carbonate-vitamin D3 600 mg-12.5 mcg (500 unit) (Calcium with Vit D3) caps PO BID omega-3 fatty acids (Fish Oil Concentrate) 1,000 mg PO DAILY vitamin B complex (B Complex-Vitamin B12 tablet) 1 tab PO DAILY Tobacco use date assessed: 12/17/23 Dental Screening Dental Screen Date: 07/01/24 HPI viral infection for over 3 months HPI Details The patient is a 64-year-old female presenting with a chronic cough. The initial onset of symptoms was following a viral infection in June. The cough persisted after the viral symptoms subsided. Initially, the patient observed yellowish-greenish phlegm, which over time became clear. She reports that her cough is not incessant but is particularly active in the mornings and sometimes after eating, contributing to a sensation of a tickle in her throat. In addition, she described occasional nocturnal coughing. Her past attempts at treatment included azithromycin with minimal improvement. The patient denies fever and has a noted blood pressure reading of 152/90, which is slightly elevated. She does not smoke and has no history of asthma. Family exposure to walking pneumonia was noted. The cough has disrupted her daily life to a limited extent, as she has not taken any sick days from work. The patient also reported trying allergy medications and has recently switched to using Alison, but experienced increased dryness in her throat. She has used various [id number] remedies for symptom relief without significant success [facility] Medical History Right shoulder pain Surgical History History of D&C History of hysterectomy Family History Father No problems noted. Mother Stroke Family/Other Breast cancer Social History Housing: House Alcohol intake: current Alcohol intake frequency: holidays/special occasions only Patient Tobacco Use Status: Never used Tobacco e-Cigarette/Vaping Use: Never Used Second Hand Smoke Exposure: No service: No Current occupational status: employed Current occupation: [employer] Current occupational exposures/hazards: No Cognitive needs: No Hearing needs: No Vision needs: Yes Questionnaire PHQ-9 Over the last 2 weeks, how often have you been bothered by any of the following problems? 1. Little interest or pleasure in doing things: not at all 2. Feeling down, depressed, or hopeless: not at all 3. Trouble falling or staying asleep, or sleeping too much: not at all 4. Feeling tired or having little energy: not at all 5. Poor appetite or overeating: not at all 6. Feeling bad about yourself - or that you are a failure or have let yourself or your family down: not at all 7. Trouble concentrating on things, such as reading the newspaper or watching television: not at all 8. Moving or speaking so slowly that other people could have noticed. Or the opposite - being so fidgety or restless that you have been moving around a lot more than usual: not at all 9. Thoughts that you would be better off or of hurting yourself in some way: not at all Total score: 0 Depression Screening Interpretation: Negative Depression Screening Done: Yes 17877 - PHQ-9 Billing: Yes Source: Developed by Drs. Jordy Hampton, Hannah Reveles, Yusef Mejias and colleagues, with an educational teddy from [employer]. Thrive Questionnaire Date Thrive assessed: 09/22/24 I am a: Patient What is your living situation today?: I have a steady place to live Within the past 12 months, did the food you bought not last and you didn't have the money to get more?: Never true Within the past 12 months, did you worry whether your food would run out before you got money to buy more?: Never true Do you have trouble paying for medicines?: No Do you have trouble getting transportation to medical appointments?: No Do you have trouble paying your heating and electricity bill?: No Do you have trouble taking care of your child, family member or friend?: No Do you have trouble with day-to-day activities such as bathing, preparing meals, shopping, managing finances, etc.?: No Are you currently unemployed and looking for a job?: No Are you interested in more education?: No Please select the resources that you would like help with: None Currently or been in a relationship where the following occur: No concerns reported THRIVE Score: 0 AUDIT C Alcohol Use Questionnaire (AUDIT-C) 1. How often do you have a drink containing alcohol?: Monthly or less 2. How many drinks containing alcohol do you have on a typical day when you are drinking?: 1 or 2 3. How often do you have six or more drinks on one occasion?: Never Total Score: 1 MELODIE-7 AMB Questionnaire MELODIE-7 Date MELODIE - 7 assessed: 09/22/24 Feeling nervous, anxious, or on edge: 0 = Not at all Not being able to stop or control worryin = Not at all Worrying too much about different things: 0 = Not at all Trouble relaxin = Not at all Being so restless that it is hard to sit still: 0 = Not at all Becoming easily annoyed or irritable: 0 = Not at all Feeling afraid as if something awful might happen: 0 = Not at all Total MELODIE-7 score (0-4 normal; 5-9 mild; 10-14 moderate; 15-21 severe): 0 Source: Developed by Drs. Jordy Hampton, Hannah Reveles, Yusef Mejias and colleagues, with an educational teddy from [employer]. MELODIE-7 Assessment Billing MELODIE-7 Assessment Tool: MELODIE-7 Assessment 84756 Review of Systems Const Denies headache(s) Eyes Denies loss of vision ENT Denies vertigo, Denies dizziness, Denies headache(s) and Denies sore throat Card Denies chest pain, Denies leg edema and Denies lightheadedness Resp Reports cough, Denies hemoptysis and Denies wheezing GI Denies abdominal pain, Denies melena, Denies constipation, Denies diarrhea and Denies vomiting Denies urinary frequency, Denies dysuria and Denies urinary urgency Musc Denies arthralgias, Denies joint swelling, Denies numbness and Denies tingling Neuro Denies Abnormal speech present, Denies behavioral changes, Denies vertigo, Denies dizziness, Denies headache(s), Denies loss of vision, Denies memory loss, Denies numbness and Denies tingling Psych Denies anxiety, Denies behavioral changes, Denies depression, Denies memory loss and Denies panic attacks Paras/Lymph Denies easy bleeding and Denies easy bruising Aller/Immun Denies wheezing Physical exam (Primary Care) Vital Signs: Last Vital Signs Pulse 94 09/22/24 11:21 BP 152/90 H 09/22/24 11:21 Pulse Ox 99 09/22/24 11:21 Oxygen Delivery Method Room Air 09/22/24 11:21 BMI result Body Mass Index 28.3 Tobacco/Smoking Status: Tobacco use Status Tobacco use date assessed 12/17/23 09/22/24 11:23 Patient Tobacco Use Status Never used Tobacco 09/22/24 11:23 Tobacco use type 12/17/23 08:44 e-Cigarette/Vaping Use Never Used 09/22/24 11:23 PHQ-9: PHQ-9 Score PHQ-9: Total score 0 09/22/24 11:23 Depression Screening Interpretation: Negative Thrive Assessment: Date of Thrive Assessment Date Thrive assessed 09/22/24 09/22/24 11:23 Currently or been in a relationship where the following occur: No concerns reported Const General: healthy appearing, no acute distress, alert and awake Nutritional Appearance: well nourished Orientation/consciousness: oriented to person, oriented to place and oriented to time HENMT Ears: TM's normal bilaterally General nose exam: Normal nasal mucous membranes and turbinates present Eyes Conjunctivae: conjunctivae normal Sclerae: sclerae normal Pupils: Equal, round and reactive pupils present Neck Neck: Yes no lymphadenopathy and Yes no JVD Thyroid: Thyroid normal Carotids: no bruits Resp Other: OCCASIONAL DRY COUGH DURING EXAM Effort & Inspection: normal respiratory effort, Actively coughing and not tachypneic Auscultation: no crackles, no rales, no rhonchi and no wheezes Cardio Rate: regular rate Rhythm: regular rhythm Heart sounds: no murmurs and normal S1 and S2 GI Palpation (GI): Soft to palpation, nontender, no hepatomegaly and no splenomegaly Auscultation: normal bowel sounds Skin General skin exam: no rashes or lesions noted and dry skin Neuro General: oriented to person, oriented to place and oriented to time Cranial nerves: Yes Equal, round and reactive pupils present Speech: No Abnormal speech present Gait exam (Neuro): Normal gait present Motor exam (neuro): no tremor noted Extrem Right upper extremity: full ROM Left upper extremity: full ROM Right lower extremity: full ROM; no edema Left lower extremity: full ROM; no edema Psych Mental Status: mental status grossly normal Speech and movement: Normal speech and movement present Affect: normal affect Attitude: cooperative Thought process: Normal thought process present Coding Level of Care Code Est Pt Level 3 (12656) Diagnoses Chronic cough R05.3 Additional Codes MELODIE-7 Assessment Billing - MELODIE-7 Assessment Tool: MELODIE-7 Assessment 00838 ([id number]) PHQ-9 - 82522 - PHQ-9 Billing: Yes ([id number]) Assessment & Plan Assessment & Plan (1) Chronic cough: Code(s): R05.3 - Chronic cough Category: Medical Plan: I discussed with the patient that her chronic cough is likely a post-viral syndrome, which may include postnasal drip and sinus-related issues. We reviewed the possibility of a sinus infection and potential need for further antibiotic treatment. A chest x-ray was suggested to exclude walking pneumonia. The patient opted for the prescription of oral prednisone, which may alleviate upper respiratory inflammation. I explained the effects and potential side effects of prednisone and the cough suppressant containing codeine, including the importance of feeling drowsy. Orders: Orders XR chest 2V Today R05.3 - Chronic cough Medications: New prednisone Take 3 tablets x3 days, 2 tablets x3 days, 1 tablet x3 days 10 mg PO DIRECTED 9 days 18 tabs 0RF R05.3 - Chronic cough codeine-guaifenesin 10-100 mg/5 mL 5 mL PO Q6H 5 days PRN 120 mL 0RF cough R05.3 - Chronic cough doxycycline monohydrate 100 mg PO BID 7 days 14 caps 0RF J32.9 - Chronic sinusitis, unspecified
== END 2024-09-22 11:45 | disposition home or self-care (01) ==
PROVIDERS: PCP Physician Assistant; Visit Provider Physician Assistant
DX: R05.3 Chronic cough (principal)

== ENCOUNTER → 2024-09-22 11:05 | Outpatient (BNVA) | payer BC, SELFPAY | PROVIDERS: PCP Physician Assistant; Visit Provider Physician Assistant | DX: R05.3 Chronic cough (principal) | CPT/HCPCS: 96127 ==

== ENCOUNTER 2024-12-22 08:46 | Outpatient (REF) | payer BC, SELFPAY ==
[2024-12-22 10:48] LABS: Hematocrit 40.4 % (37.0-47.0); Hemoglobin 13.6 g/dl (12.0-16.0); Mean Corpuscular HGB Conc 33.7 g/dl (31.0-35.0); Mean Corpuscular Hemoglobin 30.2 pg (27.0-33.0); Mean Corpuscular Volume 89.6 fL (80.0-98.0); Mean Platelet Volume 9.7 fL (9.4-12.3); Platelet Count 234 X10*3/uL (160-400); Red Blood Count 4.51 X10*6/uL (4.20-5.50); Red Cell Distribution Width 12.1 % (11.0-16.0); White Blood Count 5.8 X10*3/uL (4.8-10.8)
[2024-12-22 11:12] LABS: Microalbum/Creatinine Ratio Ur 8.6 ug/mg cr (<30)
[2024-12-22 11:45] LABS: Alanine Aminotransferase 29 U/L (0-31); Albumin Level 4.4 g/dL (3.5-5.0); Alkaline Phosphatase 121 U/L (39-117); Anion Gap 10 (12-20); Aspartate Amino Transferase 25 U/L (5-31); Bilirubin Total 0.4 mg/dL (0.0-1.0); Blood Urea Nitrogen 14 mg/dL (9-16); Calcium 9.6 mg/dL (8.4-10.2); Carbon Dioxide 27 mmol/L (22-29); Chloride 108 mmol/L (96-108); Cholesterol 194 mg/dL (<200); Estimated Glomerular Filt Rate > 60; Glucose Fasting 92 mg/dL (60-99); HDL Cholesterol 43 mg/dL (>40); LDL Cholesterol Calculated 111 mg/dL (<100); Potassium 3.7 mmol/L (3.3-5.1); Sodium 141 mmol/L (135-145); Total Protein 7.5 g/dL (6.5-8.0); Triglycerides 202 mg/dL (<150)
== END 2024-12-22 08:47 | disposition home or self-care (01) ==
LOC: HO.HMGCLDS 08:46
PROVIDERS: PCP Physician Assistant; Visit Provider Physician Assistant
DX: I10 Essential (primary) hypertension (principal); E78.2 Mixed hyperlipidemia
CPT/HCPCS: 36415; 80053; 80061; 82043; 82570; 85027

== ENCOUNTER 2024-12-23 08:02 | Outpatient (AMB) | payer BC, SELFPAY ==
[2024-12-23 08:08] VITALS: BP 138/82; PULSE 105; TEMP 36.5; O2SAT 98; BMI 27.9
--- NOTE | 2024-12-23 08:08 | MHC.PC.OV ---
Vital Signs 12/23/24 08:08 Height 5 ft Weight 143 lb 2 oz BMI 27.9 BP 138/82 Blood Pressure Location Lt brachial Position Sitting Pulse 105 H Pulse Source Pulse Oximeter Temp 97.7 F Temp Source Temporal Artery Scan Pulse Oximetry (%) 98 Oxygen Delivery Method Room Air Intake Visit Reasons: PE R/S from 12/21/24 Allergies No Known Allergies Allergy (Verified 12/23/24 08:11) Medication List - Last Reconciled 12/23/24 by CAMERON Salgado-Guillermo ascorbic acid (vitamin C) 500 mg PO DAILY blood pressure test kit-large As directed calcium carbonate-vitamin D3 600 mg-12.5 mcg (500 unit) (Calcium with Vit D3) caps PO BID omega-3 fatty acids (Fish Oil Concentrate) 1,000 mg PO DAILY vitamin B complex (B Complex-Vitamin B12 tablet) 1 tab PO DAILY Tobacco use date assessed: 12/23/24 Dental Screening Dental Screen Date: 12/23/24 Did you have a dental visit in the last 12 months?: Yes Did you have a dental problem in the last 6 months where you did not have access to dental care?: No Was dental information given to patient?: Patient has dentist HPI PE R/S from 12/21/24 HPI Details Daria is 64-year-old female here today for an annual physical. Pt has a pmhx significant for GERD, hyperlipidemia. She is now living skilled nursing life ?? .. Hyperlipidemia:? Most recent lipid panel continues to improve,Total cholesterol now within normal range..? Patient has been working extensively on lifestyle to help reduce her cholesterol and triglycerides. ?Of note has lost weight since last office visit. . Elevated blood pressure reading:? Blood pressure today in office acceptable. Has been monitoring her blood pressure at home and is getting readings of 120-130 systolic.. Will continue to work on lifestyle and forgo starting low-dose blood pressure medication at this time. Colonoscopy: 2016-normal repeat in 10 years .. ? mammo: gets mammogram at [facility]-done in January of 2024 BI-RADS 2 .. ? 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 Has had partial hysterectomy. // Vaccine: Declines flu, up-to-date with Tdap, Needs Shingles vaccine Laboratory Tests 12/08/22 07/27/23 06/30/24 08:37 08:29 08:35 RBC Creatinine 0.66 Triglycerides 181 H Cholesterol 243 222 H 215 H LDL Cholesterol, C alc 165 149 H 132 H Urine Microalbumin 12/22/24 08:49 RBC 4.51 Creatinine 0.59 Triglycerides 202 H Cholesterol 194 LDL Cholesterol, C alc 111 H Urine Microalbumin 6.0 She is now living in a skilled nursing life. [facility] Medical History (Updated 12/28/24 @ 07:34 by Jag Paredes PA-C) Left breast mass Right shoulder pain Surgical History History of D&C History of hysterectomy Family History (Updated 12/23/24 @ 08:19 by Jag Paredes PA-C) Father No problems noted. Mother Stroke Family/Other Breast cancer Brother CAD (coronary artery disease) Social History (Updated 12/23/24 @ 08:20 by Jag Paredes PA-C) Housing: House Alcohol intake: current Alcohol intake frequency: holidays/special occasions only Patient Tobacco Use Status: Never used Tobacco e-Cigarette/Vaping Use: Never Used Second Hand Smoke Exposure: No service: No Current occupational status: retired Current occupation: [employer] Current occupational exposures/hazards: No Cognitive needs: No Hearing needs: No Vision needs: Yes Questionnaire PHQ-9 Over the last 2 weeks, how often have you been bothered by any of the following problems? 1. Little interest or pleasure in doing things: not at all 2. Feeling down, depressed, or hopeless: not at all 3. Trouble falling or staying asleep, or sleeping too much: not at all 4. Feeling tired or having little energy: not at all 5. Poor appetite or overeating: not at all 6. Feeling bad about yourself - or that you are a failure or have let yourself or your family down: not at all 7. Trouble concentrating on things, such as reading the newspaper or watching television: not at all 8. Moving or speaking so slowly that other people could have noticed. Or the opposite - being so fidgety or restless that you have been moving around a lot more than usual: not at all 9. Thoughts that you would be better off or of hurting yourself in some way: not at all Total score: 0 Depression Screening Interpretation: Negative Depression Screening Done: Yes 40086 - PHQ-9 Billing: Yes Source: Developed by Drs. Jordy Hampton, Hannah Reveles, Yusef Mejias and colleagues, with an educational teddy from [employer]. Thrive Questionnaire Date Thrive assessed: 12/23/24 I am a: Patient What is your living situation today?: I have a steady place to live Within the past 12 months, did the food you bought not last and you didn't have the money to get more?: Never true Within the past 12 months, did you worry whether your food would run out before you got money to buy more?: Never true Do you have trouble paying for medicines?: No Do you have trouble getting transportation to medical appointments?: No Do you have trouble paying your heating and electricity bill?: No Do you have trouble taking care of your child, family member or friend?: No Do you have trouble with day-to-day activities such as bathing, preparing meals, shopping, managing finances, etc.?: No Are you currently unemployed and looking for a job?: No Are you interested in more education?: I choose not to answer this question Please select the resources that you would like help with: None Currently or been in a relationship where the following occur: No concerns reported THRIVE Score: 0 AUDIT C Alcohol Use Questionnaire (AUDIT-C) 1. How often do you have a drink containing alcohol?: Never 3. How often do you have six or more drinks on one occasion?: Never Total Score: 0 MELODIE-7 AMB Questionnaire MELODIE-7 Date MELODIE - 7 assessed: 12/23/24 Feeling nervous, anxious, or on edge: 0 = Not at all Not being able to stop or control worryin = Not at all Worrying too much about different things: 0 = Not at all Trouble relaxin = Not at all Being so restless that it is hard to sit still: 0 = Not at all Becoming easily annoyed or irritable: 0 = Not at all Feeling afraid as if something awful might happen: 0 = Not at all Total MELODIE-7 score (0-4 normal; 5-9 mild; 10-14 moderate; 15-21 severe): 0 Source: Developed by Hannah Miller B.W. Abdirizak, Yusef Mejias and colleagues, with an educational teddy from [employer]. MELODIE-7 Assessment Billing MELODIE-7 Assessment Tool: MELODIE-7 Assessment 58194 Review of Systems Const Denies body aches, Denies chills, Denies excessive sweating, Denies fatigue, Denies fever(s) and Denies headache(s) Eyes Denies blurry vision ENT Denies dysphagia, Denies vertigo, Denies dizziness, Denies headache(s), Denies hearing loss and Denies tinnitus Card Denies chest pain, Denies chest pain with activity, Denies syncope, Denies irregular heart rhythm and Denies dyspnea Resp Denies chest congestion, Denies cough, Denies hemoptysis, Denies dyspnea and Denies wheezing GI Denies abdominal pain, Denies melena, Denies hematochezia, Denies coffee ground emesis, Denies dysphagia, Denies diarrhea, Denies nausea and Denies vomiting Denies urinary frequency, Denies dysuria, Denies urinary hesitancy and Denies urinary urgency Musc Denies arthralgias, Denies limited range of motion, Denies muscle cramps and Denies muscle weakness Skin/Breast Denies rash and Denies skin ulcer Neuro Denies Abnormal speech present, Denies confusion, Denies vertigo, Denies dizziness, Denies syncope, Denies headache(s), Denies memory loss and Denies seizure-like activity Psych Denies anxiety, Denies confusion, Denies depression, Denies memory loss, Denies panic attacks and Denies paranoia Endo Denies excessive sweating, Denies fatigue, Denies flushing, Denies polydipsia and Denies polyuria Aller/Immun Denies wheezing Physical exam (Primary Care) Vital Signs: Last Vital Signs Temp 97.7 F 12/23/24 08:08 Pulse 105 H 12/23/24 08:08 BP 138/82 12/23/24 08:08 Pulse Ox 98 12/23/24 08:08 Oxygen Delivery Method Room Air 12/23/24 08:08 BMI result Body Mass Index 27.9 Tobacco/Smoking Status: Tobacco use Status Tobacco use date assessed 12/23/24 12/23/24 08:12 Patient Tobacco Use Status Never used Tobacco 12/23/24 08:20 Tobacco use type 12/17/23 08:44 e-Cigarette/Vaping Use Never Used 12/23/24 08:20 PHQ-9: PHQ-9 Score PHQ-9: Total score 0 12/23/24 08:14 Depression Screening Interpretation: Negative Thrive Assessment: Date of Thrive Assessment Date Thrive assessed 12/23/24 12/23/24 08:12 Currently or been in a relationship where the following occur: No concerns reported Const General: cooperative, comfortable, no acute distress, alert and awake; No confusion Orientation/consciousness: oriented to person, oriented to place, patient oriented x3 and No confusion HENMT Head: Yes normocephalic Ears: external ears normal and TM's normal bilaterally Face and sinus: No sinus tenderness Mouth: Normal oral and palatal mucosa present and tongue normal Teeth and gingiva: dentition normal and gingiva normal Throat: Yes posterior oropharynx normal, Yes tonsils normal and Yes uvula midline Eyes Conjunctivae: conjunctivae normal Sclerae: sclerae normal Pupils: Equal, round and reactive pupils present EOM: EOMs intact bilaterally Direct Ophthalmoscopy: No no photophobia Neck Neck: Yes no lymphadenopathy, No tender and Yes no JVD Thyroid: Thyroid normal Carotids: no bruits Chest Chest palpation & inspection: no tenderness Resp Effort & Inspection: normal respiratory effort, no audible wheezes, not labored and no stridor Auscultation: no crackles, no rales, no rhonchi and no wheezes Cardio Jugular venous distension: no JVD Rate: regular rate, not bradycardic and not tachycardic Rhythm: regular rhythm Bruits: no carotid bruits Peripheral pulses: Peripheral pulses 2+ throughout GI Inspection: Yes normal to inspection, No abdominal wall ecchymosis and No visible herniation Palpation (GI): Soft to palpation, nontender, no guarding, not rigid and No hepatosplenomegaly present Auscultation: normoactive bowel sounds General: Yes no CVA tenderness Back/Spine/Pelvis Back: no CVA tenderness and No back tenderness Cervical Spine: cervical ROM normal Thoracic/Lumbar Spine: thoracic and lumbar spine normal to inspection, straight leg raise negative bilaterally, No thoraco-lumbar ROM limited and No lumbar spinal tenderness Skin Lesions: no lesions Rashes: no rashes Wounds: no wounds Neuro General: oriented to person, oriented to place, patient oriented x3, CN's II-XI intact bilaterally and No confusion Cranial nerves: Yes Equal, round and reactive pupils present and Yes Normal accommodation reflex present Cognition (Neuro): normal cognition Speech: No Abnormal speech present Gait exam (Neuro): Normal gait present Motor exam (neuro): 5/5 motor strength present throughout Extrem Right upper extremity: full ROM; no cyanosis Left upper extremity: full ROM; no cyanosis Right lower extremity: no edema Left lower extremity: no edema Psych Appearance: grossly normal Mental Status: mental status grossly normal Affect: normal affect Attitude: cooperative Thought process: Normal thought process present Coding Level of Care Code Est Pt Prev Care 40-64y(96690) Diagnoses Annual physical exam Z00.00 Mixed hyperlipidemia E78.2 Hyperlipidemia type: mixed hyperlipidemia Non-seasonal allergic rhinitis due to other allergic trigger J30.89 Allergic rhinitis trigger: other Allergic rhinitis seasonality: non-seasonal Additional Codes MELODIE-7 Assessment Billing - MELODIE-7 Assessment Tool: MELODIE-7 Assessment 30710 ([id number]) PHQ-9 - 84113 - PHQ-9 Billing: Yes ([id number]) Assessment & Plan Assessment & Plan (1) Annual physical exam: Code(s): Z00.00 - Encounter for general adult medical examination without abnormal findings Category: Medical Plan: as per HPI (2) Hyperlipidemia: Code(s): E78.5 - Hyperlipidemia, unspecified Category: Medical Qualifiers: Hyperlipidemia type: mixed hyperlipidemia Qualified Code(s): E78.2 - Mixed hyperlipidemia Plan: patient's most recent lipid panel showing improved total cholesterol and LDL. She continues to work on lifestyle and dietary modifications. Goal LDL to remain below 200 (3) Allergic rhinitis: Code(s): J30.9 - Allergic rhinitis, unspecified Category: Medical Qualifiers: Allergic rhinitis trigger: other Allergic rhinitis seasonality: non-seasonal Qualified Code(s): J30.89 - Other allergic rhinitis Plan: patient continues with the use of allergy medication daily. She has intermittently used a nasal spray which has been helpful. Will send for allergy testing She does report she has throat congestion that we related to postnasal drip. Advised to continue on nasal spray for her allergies. We did discuss the possibility of getting a sleep study to evaluate for obstructive sleep apnea. She is considering sleep study. Orders: Orders Complete Blood Count no Diff 6 Months I10 - Essential (primary) hypertension Resp Allergy Profile Region I 12/23/24 J30.9 - Allergic rhinitis, unspecified, R05.9 - Cough, unspecified Comprehensive [place]. Panel Fast 6 Months I10 - Essential (primary) hypertension Lipid Panel 6 Months E78.2 - Mixed hyperlipidemia Medications: New lorazepam 0.5 mg PO DAILY PRN 4 tabs 0RF anxiety 4 days
== END 2024-12-23 08:40 | disposition home or self-care (01) ==
LOC: HO.HMCH 08:02
PROVIDERS: PCP Physician Assistant; Visit Provider Physician Assistant
DX: Z00.00 Encounter for general adult medical examination without abnormal findings (principal); E78.2 Mixed hyperlipidemia; J30.89 Other allergic rhinitis

== ENCOUNTER → 2024-12-23 08:02 | Outpatient (BNVA) | payer BC, SELFPAY | PROVIDERS: PCP Physician Assistant; Visit Provider Physician Assistant | DX: Z00.00 Encounter for general adult medical examination without abnormal findings (principal); E78.2 Mixed hyperlipidemia; J30.89 Other allergic rhinitis | CPT/HCPCS: 96127 ==

== ENCOUNTER 2024-12-30 13:05 | Outpatient (REF) | payer BC, SELFPAY ==
[2024-12-30 21:21] LABS: Influenza A PCR NEGATIVE (Negative); Influenza B PCR NEGATIVE (Negative); Resp Syncy Virus RNA Qual PCR NEGATIVE (Negative); SARS COV2 PCR INHOUSE NEGATIVE (Negative)
== END 2024-12-30 13:06 | disposition home or self-care (01) ==
LOC: HO.LAB 13:05
PROVIDERS: Physician Assistant; PCP Physician Assistant
DX: J06.9 Acute upper respiratory infection, unspecified (principal); R09.89 Other specified symptoms and signs involving the circulatory and respiratory systems
CPT/HCPCS: 0241U

== ENCOUNTER 2024-12-30 13:05 | Outpatient (AMB) | payer BC, SELFPAY ==
[2024-12-30 13:11] VITALS: BP 130/90; PULSE 94; TEMP 37.2; O2SAT 97
--- NOTE | 2024-12-30 13:11 | AM.OFFWIN_ITS ---
Intake Vital Signs 12/30/24 13:11 Weight 146 lb BP 130/90 H Blood Pressure Location Rt brachial Position Sitting Pulse 94 Pulse Source Pulse Oximeter Temp 98.9 F Temp Source Oral Pulse Oximetry (%) 97 Oxygen Delivery Method Room Air Intake Visit Reasons: EP cough, chest congestion, fever Intake Note: Patient here for cough, fever and chest congestion that started over the weekend. Patient Tobacco Use Status: Never used Tobacco Allergies No Known Allergies Allergy (Verified 12/30/24 13:15) Do you need a note to return to daycare/school/sports/work: No HPI HPI Comments History of Present Illness Details History - The patient is a 64-year-old female pr esenting with acute onset of cough and congestion. - She experienced a cold a week prior wi th temporary improvement before relapse on Saturday with a cough. - The symptoms coincide with the recent illness of her granddaughter, suggesting exposure as a possible source. The granddaughter recovered without medical treatment or antibiotics. - Notably, the patient reports wheezing when lying in bed but denies shortness of breath and has no history of asthma, COPD, smoking, or vaping. - Remedies prior to this visit have incl uded Motrin and fluids; antihistamine use is regular, and Flonase was used in the past but not recently. Physical Exam General: Cooperative, healthy appearing, comfortable and no acute distress Orientation/consciousness: Patient oriented x3 Limitations: No limitations Head: Normal to inspection Ears: Hearing grossly normal bilaterally, external ears normal and TM's normal bilaterally, but some fluid present Nose: Normal external nose present, Normal nares present and No nasal discharge present Face and sinus: Normal facial exam and Yes sinuses nontender Mouth: Normal oral and palatal mucosa present and moist mucous membranes Throat: Yes tonsils normal, Yes uvula midline. Posterior oropharynx erythema Eyes: Appearance normal, both eyes and all related structures Neck: Normal visual inspection Respiratory: Clear to auscultation bilaterally. Normal respiratory effort, able to speak in complete sentences, Actively coughing, no respiratory distress, not tachypneic, no tripod positioning and no use of accessory muscles Cardiovascular: Regular rate and rhythm. Normal S1 and S2 Skin: No rashes or lesions noted Neuro: Patient oriented x3 Extremities: Normal to inspection and Yes no clubbing, cyanosis or edema [facility] Medical History (Updated 12/30/24 @ 13:40 by Rizwana Verma PA-C) Left breast mass Right shoulder pain Surgical History History of D&C History of hysterectomy Family History (Updated 12/23/24 @ 08:19 by Jag Paredes PA-C) Father No problems noted. Mother Stroke Family/Other Breast cancer Brother CAD (coronary artery disease) Social History (Updated 12/23/24 @ 08:20 by Jag Paredes PA-C) Housing: House Alcohol intake: current Alcohol intake frequency: holidays/special occasions only Patient Tobacco Use Status: Never used Tobacco e-Cigarette/Vaping Use: Never Used Second Hand Smoke Exposure: No service: No Current occupational status: retired Current occupation: [employer] Current occupational exposures/hazards: No Cognitive needs: No Hearing needs: No Vision needs: Yes Review of Systems Const All systems reviewed & are unremarkable except as noted in HPI and below Physical Exam Vital Signs: Last Vital Signs Temp 98.9 F 12/30/24 13:11 Pulse 94 12/30/24 13:11 BP 130/90 H 12/30/24 13:11 Pulse Ox 97 12/30/24 13:11 Oxygen Delivery Method Room Air 12/30/24 13:11 Assessment & Plan Assessment & Plan (1) URI, acute: Code(s): J06.9 - Acute upper respiratory infection, unspecified Plan: VSS, pt well appearing and PE unremarkable. The patient presents with acute cough and congestion likely due to a viral upper respiratory infection. A decongestant, such as Mucinex, is advised for symptomatic relief, in conjunction with continued antihistamines and Flonase to manage nasal congestion. Proper technique for nasal spray usage is emphasized. Tessalon Perles is prescribed for use before bedtime to suppress the cough and improve sleep quality. Flu, COVID- 19, and RSV tests have been performed with results expected by the following morning to adapt treatment as needed. The patient is advised to report any symptom persistence or worsening, which may indicate bacterial infection requiring further intervention. Patient was informed and verbally consented to the use of an ambient scribe for clinic note documentation during this visit Orders: Orders SARS-CoV2/FLU/RSV Today R09.89 - Other specified symptoms and signs involving the circulatory and respiratory systems Medications: New benzonatate 200 mg PO BEDTIME PRN 10 caps 0RF cough Coding Level of Care Code Est Pt Level 3 (63358) Diagnoses URI, acute J06.9
== END 2024-12-30 13:52 | disposition home or self-care (01) ==
PROVIDERS: PCP Physician Assistant; Visit Provider Physician Assistant
DX: J06.9 Acute upper respiratory infection, unspecified (principal)

== ENCOUNTER 2025-01-20 09:26 | Outpatient (AMB) | payer BC, SELFPAY ==
[2025-01-20 09:29] VITALS: BP 142/80; PULSE 90; RESP 14; TEMP 37.1; O2SAT 98; BMI 27.8
--- NOTE | 2025-01-20 09:29 | MHC.PC.OV ---
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 Accompanied by: Self / Same As Patient Allergies No Known Allergies Allergy (Verified 01/20/25 09:43) Medication List - Last Reconciled 01/20/25 by EITAN Shelley ascorbic acid (vitamin C) 500 mg PO DAILY blood pressure test kit-large As directed calcium carbonate-vitamin D3 600 mg-12.5 mcg (500 unit) (Calcium with Vit D3) caps PO BID lorazepam 0.5 mg PO DAILY PRN 4 days omega-3 fatty acids (Fish Oil Concentrate) 1,000 mg PO DAILY vitamin B complex (B Complex-Vitamin B12 tablet) 1 tab PO DAILY Tobacco use date assessed: 01/20/25 Dental Screening Dental Screen Date: 01/20/25 Did you have a dental visit in the last 12 months?: Yes Did you have a dental problem in the last 6 months where you did not have access to dental care?: No Was dental information given to patient?: Patient has dentist HPI cough HPI Details The patient is a 64-year-old female presenting with an ongoing cough and persistent phlegm production. Her symptoms began after caring for her ill granddaughter, leading to a resurgence of previous respiratory symptoms managed with Flonase, Mucinex, and saline rinses. Initial mucus was yellowish but transitioned to clear with treatment. She experienced blood in her mucus after using a nasal spray, prompting discontinuation. Despite regular allergy medication, symptoms persist. The patient highly suspects allergies or sinus issues despite unusual cough duration. Her medical history includes a viral illness in late June similar to current symptoms, which previously required antibiotics and steroids. Concerns about chest complications prompt interest in a chest x-ray despite negative early signs of pneumonia or other lung pathologies, in the absence of smoking history. [facility] Medical History (Updated 01/21/25 @ 21:26 by EITAN Shelley) Left breast mass Right shoulder pain Surgical History History of D&C History of hysterectomy Family History Father No problems noted. Mother Stroke Family/Other Breast cancer Brother CAD (coronary artery disease) Social History Housing: House Alcohol intake: current Alcohol intake frequency: holidays/special occasions only Patient Tobacco Use Status: Never used Tobacco e-Cigarette/Vaping Use: Never Used Second Hand Smoke Exposure: No service: No Current occupational status: retired Current occupation: [employer] Current occupational exposures/hazards: No Cognitive needs: No Hearing needs: No Vision needs: Yes (Glasses) Questionnaire Thrive Questionnaire Date Thrive assessed: 01/20/25 I am a: Patient What is your living situation today?: I have a steady place to live Within the past 12 months, did the food you bought not last and you didn't have the money to get more?: Never true Within the past 12 months, did you worry whether your food would run out before you got money to buy more?: Never true Do you have trouble paying for medicines?: No Do you have trouble getting transportation to medical appointments?: No Do you have trouble paying your heating and electricity bill?: No Do you have trouble taking care of your child, family member or friend?: No Do you have trouble with day-to-day activities such as bathing, preparing meals, shopping, managing finances, etc.?: No Are you currently unemployed and looking for a job?: No Are you interested in more education?: I choose not to answer this question Please select the resources that you would like help with: None Currently or been in a relationship where the following occur: No concerns reported THRIVE Score: 0 AUDIT C Alcohol Use Questionnaire (AUDIT-C) 1. How often do you have a drink containing alcohol?: Never 3. How often do you have six or more drinks on one occasion?: Never Total Score: 0 Score Reviewed/Action Taken: No MELODIE-7 AMB Questionnaire MELODIE-7 Date MELODIE - 7 assessed: 12/23/24 Source: Developed by Drs. Jordy Hampton, Hannah Reveles, Yusef Mejias and colleagues, with an educational teddy from [employer]. Review of Systems ENT Denies sore throat Card Denies chest pain, Denies leg edema and Denies lightheadedness Resp Denies cough, Denies hemoptysis and Denies wheezing GI Denies abdominal pain, Denies melena, Denies constipation, Denies diarrhea and Denies vomiting Aller/Immun Denies wheezing Physical exam (Primary Care) Vital Signs: Last Vital Signs Temp 98.7 F 01/20/25 09:29 Pulse 90 01/20/25 09:29 Resp 14 01/20/25 09:29 BP 142/80 H 01/20/25 09:29 Pulse Ox 98 01/20/25 09:29 Oxygen Delivery Method Room Air 01/20/25 09:29 BMI result Body Mass Index 27.8 Tobacco/Smoking Status: Tobacco use Status Tobacco use date assessed 01/20/25 01/20/25 09:39 Patient Tobacco Use Status Never used Tobacco 01/20/25 09:39 Tobacco use type 12/17/23 08:44 e-Cigarette/Vaping Use Never Used 01/20/25 09:39 Thrive Assessment: Date of Thrive Assessment Date Thrive assessed 01/20/25 01/20/25 09:39 Currently or been in a relationship where the following occur: No concerns reported Const General: healthy appearing, no acute distress, alert and awake Nutritional Appearance: well nourished HENMT Ears: Abnormal EAC present excessive cerumen bilateral General nose exam: Abnormal mucous membranes and turbinates present boggy and erythematous and Nasal discharge present clear Eyes Conjunctivae: conjunctivae normal Sclerae: sclerae normal Neck Neck: Yes no lymphadenopathy and Yes no JVD Thyroid: Thyroid normal Carotids: no bruits Resp Effort & Inspection: normal respiratory effort, Actively coughing and not tachypneic Auscultation: no crackles, no rales, no rhonchi and no wheezes Cardio Rate: regular rate Rhythm: regular rhythm Heart sounds: no murmurs and normal S1 and S2 GI Palpation (GI): Soft to palpation, nontender, no hepatomegaly and no splenomegaly Auscultation: normal bowel sounds Coding Level of Care Code Est Pt Level 3 (71914) Diagnoses URI, acute J06.9 Hemoptysis R04.2 Non-seasonal allergic rhinitis due to other allergic trigger J30.89 Allergic rhinitis trigger: other Allergic rhinitis seasonality: non-seasonal Chronic cough R05.3 Excessive cerumen in both ear canals H61.23 Time Spent (min) 33 Assessment & Plan Assessment & Plan (1) URI, acute: Code(s): J06.9 - Acute upper respiratory infection, unspecified Category: Medical (2) Hemoptysis: Code(s): R04.2 - Hemoptysis Category: Medical (3) Allergic rhinitis: Code(s): J30.9 - Allergic rhinitis, unspecified Category: Medical Qualifiers: Allergic rhinitis trigger: other Allergic rhinitis seasonality: non-seasonal Qualified Code(s): J30.89 - Other allergic rhinitis (4) Chronic cough: Code(s): R05.3 - Chronic cough Category: Medical (5) Excessive cerumen in both ear canals: Code(s): H61.23 - Impacted cerumen, bilateral Category: Medical Plan A chest x-ray is advised to assess any underlying lung issues. The patient should continue regular allergy medications and consider an ENT or pulmonary evaluation for persistent symptoms. Benzonatate is recommended for cough management, and prednisone for inflammation control given intolerance to nasal corticosteroids. Debrox ear drops may be beneficial for earwax-related symptoms. The patient has been reassured about the symptoms' etiology and encouraged to manage potential allergic triggers. Patient was informed and verbally consented to the use of an ambient scribe for clinic note documentation during this visit. Orders: Orders XR chest 2V 01/20/25 R04.2 - Hemoptysis Medications: New benzonatate 200 mg PO TID PRN 90 caps 0RF cough prednisone see taper instructions take 4 tabs x 2 days, then 3 tabs x 2 days, then 2 tabs x 2 days, then 1 tab x 2 days =20 tabs for 8 days 10 mg PO DIRECTED 20 tabs 0RF Patient Instructions: - Continue allergy medications like Alison for managing symptoms. - Use Benzonatate as needed up to three times daily to control cough. - Consider Debrox ear drops for earwax buildup. - Attend the chest x-ray appointment for further evaluation. - Monitor for any new or worsening symptoms, and seek care if blood in mucus or difficulty breathing reemerges. - Stay hydrated and avoid known allergy triggers.
== END 2025-01-20 10:10 | disposition home or self-care (01) ==
LOC: HO.HMCH 09:27
PROVIDERS: PCP Physician Assistant
DX: J06.9 Acute upper respiratory infection, unspecified (principal); R04.2 Hemoptysis; J30.89 Other allergic rhinitis; R05.3 Chronic cough; H61.23 Impacted cerumen, bilateral

== ENCOUNTER 2025-01-20 09:26 | Outpatient (REF) | payer BC, SELFPAY ==
--- NOTE | ~2025-01-20 | XR_ITS ---
CLINICAL HISTORY: R04.2 - Hemoptysis 2 views chest Comparison: None Findings: Cardiac and mediastinal contours are normal. Mild interstitial prominence with scattered peribronchial thickening. No focal consolidation. No effusion. No pneumothorax. No acute osseous finding. Impression: Mild interstitial prominence with scattered peribronchial thickening. No focal consolidation. This document has been electronically signed by: Kyle Edwards MD on 01/21/2025 19:18:56
== END 2025-01-20 09:27 | disposition home or self-care (01) ==
LOC: HO.XRAY 09:26
PROVIDERS: PCP Physician Assistant
DX: R04.2 Hemoptysis (principal)
CPT/HCPCS: 71046

== ENCOUNTER → 2025-01-20 10:21 | Outpatient (BNV) | payer BC, SELFPAY | PROVIDERS: PCP Physician Assistant; Visit Provider Radiology Vascular & Interventional Radiology | DX: R04.2 Hemoptysis (principal) | CPT/HCPCS: 71046 ==

== ENCOUNTER 2025-06-28 07:13 | Outpatient (REF) | payer BC, SELFPAY ==
--- OUTSIDE RECORDS SUMMARY | 2025-06-28 07:16 | XMS_ITS | Patient Health Record ---
Author Organization [facility] Address [address] [place] [address] Care Team Providers Care Chemistry Technician Name Role Phone Linnette(inactive) Chi WILDER Primary Care Provider U Jordy Thapa Unavailable [phone] Reason For Referral No Information Medications Medication SIG (Take, Route, Frequency, Duration) Notes Start Date End Date Status Fish Oil Active Calcium Active Garlic Active Problems Problem Type SNOMED Code ICD Code Onset Dates Problem Status W/U Status Risk Notes Problem [id number] Encounter for screening for malignant neoplasm of colon (Z12.11) Active confirmed Problem Screening for malignant neoplasm of rectum (904879615) Encounter for screening for malignant neoplasm of rectum (Z12.12) Active confirmed Problem [id number] Preprocedural examination (Z01.818) Active confirmed Plan Of Treatment Pending Test Test Name Order Date GI BIOPSY 09/06/2016 Future Test Test Name Order Date COLONOSCOPY 06/07/2016 Insurance Providers Payer Name Payer Address Payer Phone Subscriber Number Group Number Insured Name Patient Relationship to Insured Coverage Start Date Coverage End Date [facility] [address] [place] [address] [id number] APRYL HORVATH Self - patient is the insured Medical (General) History Medical History History ICD Code Denies OR,DM,CVA,Lung disease,renal dise ase Surgical History Surgery Date(Month/Year) Partial hysterectomy
--- OUTSIDE RECORDS SUMMARY | 2025-06-28 07:16 | XMS_ITS | Data Portability ---
Author Organization [place] - [facility], Allergy Address [address] [address] Care Team Providers Care Brick Burner Head Name Role Phone KIT ROTH Primary Care Provider [phone] Assessment Encounter Date Assessment Date Assessment LastModified by Organization Details LastModified Time 03/01/2025 03/01/2025 Patient with greater than 12 weeks of nasal symptoms with congestion and postnasal drip. The major sinus and respiratory symptoms appear to have resolved. She still has postnasal drainage despite antihistamines. She had difficulty tolerating nasal steroids due to bleeding. Examination shows no polyps or colored nasal discharge. Fiberoptic examination showed mild congestion with clear nasal drainage. No purulence or polyps. High septal deviation to the right side noted. Suggest a trial of Astelin and allergy skin testing. Patient notes that she does have elevated blood pressure in the physician's office, however, she checks it twice a day at home and it is normal [email or web address] Not available 03/01/2025 10:41:05 04/28/2025 04/28/2025 1. Allergic Rhinitis The patient has multiple environmental allergies, including ragweed, mugwort, and birch tree pollen. Azelastine nasal spray is improving symptoms. Allergy shots were recommended for long-term treatment. Short-term symptomatic relief is being sought through Alison, Flonase, and Astelin. 2. Seasonal Allergies Upcoming exposure to weed pollen noted, and continued use of current medications during travel advised. Allergy immunotherapy discussed as a viable long-term management strategy. 3. Chronic sinus presently asymptomatic. I will give her a prescription to take with her to [facility] in case she develops any infection [email or web address] Not available 04/28/2025 08:41:35 Plan of Treatment Reminders Order Date Submit Date Provider Last Modified By Organization Details Last Modified Time Details Appointments None recorded. Lab None recorded. Referral None recorded. Procedures allergen immunothera py; multiple injections (PROC) 2024 025 skorzec Not available 5 16:52:33 spirometry, including graphic record, total and timed vital capacity, expiratory flow rate measurement (s) (PROC) 2024 025 skorzec Not available 5 16:47:50 allergy testing, skin prick (PROC) 2024 025 skorzec Not available 5 11:09:08 intradermal allergy skin testing (PROC) 2024 025 skorzec Not available 5 11:09:08 pulse oximetry (PROC) 2024 025 skorzec Not available 11:09:08 Surgeries None recorded. Imaging None recorded. Medication Orders epinephrine 0.3 mg/0.3 mL injection, auto-inject or 2024 [id number], [address] [place], [id number], 5 08:42:12 amoxicillin 875 mg-potassiu m clavulanate 125 mg tablet 2024 [id number], [address] [place], [place], [id number], 5 08:42:22 azelastine 137 mcg (0.1 %) nasal spray 2024 [id number], [address] [place], [id number], 10:40:50 Patient TargetsNo targets recorded. Patient Instructions Encounter Date Encounter Id Patient Instructions Last Modified By Organization Details Last Modified Time 03/31/2025 [id number] spirometry testing* [email or web address] Not available 03/31/2025 11:46:41 Nursing Documentation for Allergy Testing: Ordering Provider Dr. Sharp Weight:lbs:139 kg: PFT Yes With Bronchodilator no approval needed to proceed with allergy testing? No ok'd testing History of Asthma:No Asthma Meds: Last used: Asthma exacerbated by: Chance that : No Fear of needles: No Regular medications reviewed in Computer: Yes Medication allergies: NKDA Antihistamine use: Yes Medications used:alison and astelin Food Allergies:no Any foods make your mouth feeling itchy: Yes If yes:peaches History of severe reaction where had to go to ER? 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 4 grandkids, 3 kids and has a house in [place] Symptoms having: Congestion If other: Frequency Year Round Spirometry Contraindications: Heart attack in the last 3 months: No Major surgery in last 3 months: No Detached retina(serious eye issues) in last 2 months: No Hospitilization in last month: No Proceed with PFT Yes approval needed: No Nursing Notes: Pt tolerated test well Yes Benadryl cream to test sites No Patient became syncopal-placed in supine position No Large reactions to MQT, reschedule IDT for a different date No Other: Written by: PAMELA Rivera Not available 03/31/2025 11:16:48 04/28/2025 [id number] Please note: Par ts of this encounter note have been generated by AI based on audio conversation. Patient consent was required prior to utilizing this technology. Content review was required prior to finalizing the note. [email or web address] Not available 04/28/2025 08:40:22 Reason for Referral None Reported. Results Created Date Observation Date Name Description Value Unit Range Abnormal Flag Note LastModifiedBy Organization Detail LastModifiedTime 03/31/20 25 kurtis metry testi ng* No observ ation record ed. michelle Not Available 2024 10:41:49 Result Notes None recorded. Problems Name Problem SNOMED Code Status Onset Date Resolution Date Notes Provider Name and Address Organization Details Recorded Time Allergic rhinitis 02731074 Active 025 [facility]ATH[facility] BRITT MD [facility] [place], [place], [address], [facility] - [facility] 5 10:39:14 Nasal discharge 42977784 Active 025 CATHLEEN BRITT MD 100 [facility] [place], [place], [address], [facility] - [facility] 5 10:39:19 Deviated nasal septum 949174364 Active 025 CATHLEEN BRITT MD 100 [facility] [place], [place], [address], [facility] - [facility] 5 10:39:25 Perennial allergic rhinitis 725893341 Active 025 CATHLEEN BRITT MD 100 [facility] [place], [place], [address], [facility] - [facility] 5 10:39:55 Increased blood pressure 05316972 Active 025 CATHLEEN BRITT MD 100 [facility] [place], [place], [address], [facility] - [facility] 5 10:41:11 Chronic sinusitis 08248374 Active 025 CATHLEEN BRITT MD 100 [facility] [place], [place], [address], [facility] - [facility] 5 08:41:41 Problem Notes None recorded. Procedures Surgical History Date Name Laterality Status Provider Name and Address Organization Details Recorded Time 03/31/20 25 Allergy Testing-Full completed LEV REDDY, Dee [address],[place] [address], [place], [address], [facility] 03/31/2025 11:34:33 03/01/20 25 Fiberoptic Laryngoscopy (Comprehensive) completed CATHLEEN SHARP MD [address] [facility] [place] [facility], [place], [address], [facility] - [facility] 03/01/2025 10:38:05 hysterectomy completed Ml Richards [place] - [facility] 03/01/2025 10:29:31 Imaging Results None recorded. Procedure Notes None recorded. Medical Equipment None Reported. Allergies No known drug allergies Medications Name Sig Start Date Stop Date Status Note LastModified by Organization Details LastModified Time prednisone 10 mg tablet 03/01 completed Not Available Not Available Not Available azithromyci n 250 mg tablet 03/01 completed Not Available Not Available Not Available benzonatate 200 mg capsule TAKE 1 CAPSULE BY MOUTH THREE TIMES DAILY NEEDED FOR COUGH 03/01 completed Not Available Not Available Not Available lorazepam 0.5 mg tablet TAKE 1 TABLET BY MOUTH DAILY FOR 4 DAYS NEEDED FOR ANXIETY 03/01 completed Not Available Not Available Not Available doxycycline monohydrate 100 mg capsule TAKE 1 CAPSULE BY MOUTH TWICE DAILY FOR 7 DAYS 03/01 completed Not Available Not Available Not Available codeine 10 mg-guaifene sin 100 mg/5 mL oral liquid TAKE 5 ML BY MOUTH EVERY 6 HOURS FOR 5 DAYS NEEDED FOR COUGH 03/01 completed Not Available Not Available Not Available azelastine 137 mcg (0.1 %) nasal spray USE 2 SPRAYS IN EACH NOSTRIL TWICE DAILY active Not Available Not Available No t Available epinephrine 0.3 mg/0.3 mL injection, auto-inject or INJECT INTRAMUSC ULARLY FOR ANAPHYLAX IS active Not Available Not Available No t Available amoxicillin 875 mg-potassiu m clavulanate 125 mg tablet TAKE 1 TABLET BY MOUTH EVERY 12 HOURS active Not Available Not Available No t Available Multiple Vitamins active Not Available Not Available Not Available Alison Allergy active Not Available Not Available Not Available Vitals Date Recorded Systolic And Diastolic Provider Name and Address Organization Details Last Updated DateTime 03/01/2025 150/92 mm[Hg] CATHLEEN SHARP MD [address], [place], [address], [place] [facility] 03/01/2025 10:41:45 Date Recorded Body height Body mass index (BMI) Body weight Provider Name and Address Organization Details Last Updated DateTime 03/01/2025 152.4 cm 27.5 kg/m2 30368.52 g Ml Richards [place] [facility] 03/01/2025 10:28:44 Date Recorded Body height Body mass index (BMI) Body weight Oxygen saturation Oxygen saturation in Arterial blood by Pulse oximetry Heart rate Systolic And Diastolic Provider Name and Address Organization Details Last Updated DateTime 152.4 cm 27.1 kg/m2 70557.3 4 g 98 % 98 % 89 /min 130/86 mm[Hg] [facility] [address], [address], [facility] 10:35:36 Date Recorded Body height Body mass index (BMI) Body weight Systolic And Diastolic Provider Name and Address Organization Details Last Updated DateTime 04/28/2025 152.4 cm 27 kg/m2 43865.75 g 140/90 mm[Hg] Francisca Nguyen [facility] 04/28/2025 08:35:21 Social History Question Answer Notes LastModified by Organizat ion Details LastModified Time Tobacco Smoking Status Never Smoker Ml geller [place] [facility] 03/01/2025 10:11:12 Do You Have Any Pets? No Information not available 03/31/2025 Are You Passively Exposed To Smoke? No Information not available 03/31/2025 Are There Any Smokers In Your House? No Information not available 03/31/2025 Sex: Unknown Functional Status Question Answer Note LastModified by Organizat ion Details LastModified Time Do you use any illicit or recreational drugs? No Information not available 03/31/2025 Do you or have you ever used any other forms of tobacco or nicotine? No Information not available 03/31/2025 What is your level of alcohol consumption? None Information not available 03/31/2025 Mental Status None recorded. Family History Nothing Reported. Medical History Condition Response Allergies/Hayfever Y Heart Problems N Anxiety Y Tonsil Infections N Emphysema N Migraines N Thyroid Problems N COPD N Depression N Developmental Delay N Glaucoma N Nasal or Sinus Problems Y Anemia Y Immune System Disorder N Anesthesia Complications N Heart Attack (IN) N Other Skin Condition N Diabetes N Rhinitis N Bleeding Disorder N Food Allergy N Hearing Loss N Arthritis N Hyperlipidemia N Eczema N Cancer N Stroke N Dementia N Nasal polyps N Asthma N Sleep Disorder N High Cholesterol Y GERD/Reflux Y Liver Disease N Headaches Y Fibromyalgia N Hypertension N Speech Delay N Kidney Disease N Gynecological HistoryNo gynecological history recorded. Obstetrics History GPAL:G 0 P 0 0 0 0 Past Encounters Encounter ID Performer Location Encounter Start Date Encounter Closed Date Diagnosis/Indication Diagnosis SNOMED-CT Code Diagnosis ICD10 Code Diagnosis IMO Codes Diagnosis Note [id number] CATHLEEN PAYAN MD [facility] [address] [address] 03/01/2025 09:51:25 03/01/2025 10:46:10 Nasal discharge 34048851 R09.82 369338 Deviated nasal septum 12 3090532 J34.2 011726 Perennial allergic rhinitis 261046112 J30.89 523128 Increased blood pressure 24356255 R03.0 [id number] [facility], [facility] Allergy [address] [place] [address] 03/31/2025 10:21:27 03/31/2025 11:35:58 Allergic rhinitis 92222287 J30.9 7150083 Perennial allergic rhinitis 720164764 J30.89 446841 [id number] CATHLEEN PAYAN MD [facility] [address] [address] 04/28/2025 08:21:30 04/28/2025 08:43:46 Allergic rhinitis 01625058 J30.89 Chronic sinusitis 369405 00 J32.8 78476 Health Concerns Section Related Observation LastModified by Organization Detai ls LastModified Time None Recorded Concern Status LastModified by Organization Details LastModified Time None Recorded Advance Directives Directive None Recorded Payers Insurance Date Sequence Insurance Name Policy Number Policy Arnold Covered Member ID Arnold Member ID Guarantor Name 04/28/2025 1 [facility] [facility] [id number] [facility] [id number] [facility] Notes Date Note Type Note Provider Name and Address Organization Details Recorded Time 03/01/2025 text/html ROS as noted in the HPI URI in June....residual cough and PND. In August she had persistent sx. Treated x 2 with abx and one course of prednisone. Sx lasted through middle of October. She felt throat was swollen and dry. All the sx resolved until she got sick from her grand-daughter in November. Change loratadine to fexofenadine and added FP with Mucinex. FP--bleeding so she stoppedLot's of phlegm for several weeks. CXR end of December- except for bronchitis treated again with amoxicillin and prednisone. Feels better except for throat clearing and some mucous despite the AllegraNo prior allergy testing NO asthmaHx of reflux in past--no sx with diet changeNon smokerNo alcohol SNOT=59Nose=0 CATHLEEN SHARP MD [address] [place] [address],[address], [address], [facility] - [facility] 03/01/2025 10:42:20 04/28/2025 text/html ROS as noted in the HPI The patient is a 64-year-old female presenting with allergic rhinitis and seasonal allergies. She reports a variety of known environmental allergens, including ragweed, mugwort, birch pollen, and molds, which have been contributing to her symptoms. Azelastine nasal spray has provided symptom relief. She experienced transient yellow drainage a week prior, likely due to a missed dose of medication, and it has now resolved. The patient does not have cats, further avoiding one allergen right now. She is open to allergy shots for long-term management. Denies symptoms of sinus pain, pressure or persistent drainage. Does not feel she presently has an infection CATHLEEN SHARP MD [address] [place] [address],[address], [address], [facility] 04/28/2025 08:43:24 OBGyn Episode No OBEpisode recorded.
--- OUTSIDE RECORDS SUMMARY | 2025-06-28 07:16 | XMS_ITS | Patient Health Record ---
Author Organization [facility] Address [address] [place] [address] Care Team Providers Care Energy Administrator Name Role Phone Chi Anglin MD Primary Care Provider Antwon Gray [phone] Reason For Referral No Information Medications Medication SIG (Take, Route, Frequency, Duration) Notes Start Date End Date Status Calcium Active Fish Oil Active Garlic Active Social History Tobacco Use: Social History Observation Description Date Details (start date - stop date) Never Smoker NA - NA Tobacco Use/Smoking Question Answer Notes Are you a: nonsmoker Additional Findings: Tobacco Non-User Aggressive non-smoker Tobacco use other than smoking: Question Answer Notes Are you an other tobacco user? No Problems Problem Type SNOMED Code ICD Code Onset Dates Problem Status W/U Status Risk Notes Problem Acquired hallux valgus (37377918) Hallux valgus (acquired), left foot (M20.12) Active confirmed Problem Acquired hallux valgus (22189785) Hallux valgus (acquired), right foot (M20.11) Active confirmed Problem Acquired hammer toe of right foot (9595716076833 105) Other hammer toe(s) (acquired), right foot (M20.41) Active confirmed Problem Acquired hammer toe of left foot (7742691616287 103) Other hammer toe(s) (acquired), left foot (M20.42) Active confirmed Plan Of Treatment Pending Test Test Name Order Date X ray : Foot, right 3V 03/18/2018 Insurance Providers Payer Name Payer Address Payer Phone Subscriber Number Group Number Insured Name Patient Relationship to Insured Coverage Start Date Coverage End Date [facility] [address] [place] [address] [phone] [id number] [phone] [id number] [facility] Self - patient is the insured 6 Medical (General) History Medical History History ICD Code Broken bones CAD (Cholesterol) Reflux ( GERD) Measles Chicken pox Surgical History Surgery Date(Month/Year) hysterectomy 12/2013
[2025-06-28 10:09] LABS: Hematocrit 38.7 % (37.0-47.0); Hemoglobin 12.9 g/dl (12.0-16.0); Mean Corpuscular HGB Conc 33.3 g/dl (31.0-35.0); Mean Corpuscular Hemoglobin 30.1 pg (27.0-33.0); Mean Corpuscular Volume 90.4 fL (80.0-98.0); NRBC Abs Auto 0.000 X10*3/uL (0.0-0.012); NRBC Pct Auto 0.0 /100WBC (0.0-0.2); Platelet Count 239 X10*3/uL (160-400); Red Blood Count 4.28 X10*6/uL (4.20-5.50); White Blood Count 6.8 X10*3/uL (4.8-10.8)
[2025-06-28 10:59] LABS: Alanine Aminotransferase 64 U/L (0-31); Albumin Level 4.6 g/dL (3.5-5.0); Alkaline Phosphatase 116 U/L (39-117); Anion Gap 9 (12-20); Aspartate Amino Transferase 41 U/L (5-31); Blood Urea Nitrogen 13 mg/dL (9-16); Calcium 9.3 mg/dL (8.4-10.2); Carbon Dioxide 28 mmol/L (22-29); Chloride 108 mmol/L (96-108); Cholesterol 265 mg/dL (<200); Estimated Glomerular Filt Rate > 60; HDL Cholesterol 54 mg/dL (>40); Potassium 3.8 mmol/L (3.3-5.1); Sodium 141 mmol/L (135-145); Total Protein 7.5 g/dL (6.5-8.0); Triglycerides 107 mg/dL (<150)
== END 2025-06-28 07:14 | disposition home or self-care (01) ==
LOC: HO.HMGCLDS 07:13
PROVIDERS: PCP Physician Assistant; Visit Provider Physician Assistant
DX: I10 Essential (primary) hypertension (principal); E78.2 Mixed hyperlipidemia
CPT/HCPCS: 36415; 80053; 80061; 85027

== ENCOUNTER 2025-06-29 09:27 | Outpatient (AMB) | payer BC, SELFPAY ==
[2025-06-29 09:34] VITALS: BP 152/90; PULSE 91; TEMP 36.4; O2SAT 98; BMI 27.5
--- NOTE | 2025-06-29 09:34 | A.OFFPC_ITS ---
Vital Signs 06/29/25 09:34 06/29/25 10:02 Height 5 ft Weight 141 lb BMI 27.5 BP 152/90 H 150/90 H Blood Pressure Location Lt brachial Position Sitting Pulse 91 Pulse Source Pulse Oximeter Temp 97.5 F Temp Source Temporal Artery Scan Pulse Oximetry (%) 98 Oxygen Delivery Method Room Air Intake Visit Reasons: f/u HLD Intake Note: Patient is here to follow up on HLD. Sterilizer Operator Required: No Concert Or Lecture Hall Manager: Not Required per policy Accompanied by: Self / Same As Patient Allergies No Known Allergies Allergy (Verified 06/29/25 09:45) Medication List - Last Reconciled 06/29/25 by CAMERON Salgado-Guillermo ascorbic acid (vitamin C) 500 mg PO DAILY blood pressure test kit-large As directed calcium carbonate-vitamin D3 600 mg-12.5 mcg (500 unit) (Calcium with Vit D3) caps PO BID lorazepam 0.5 mg PO DAILY PRN 4 days omega-3 fatty acids (Fish Oil Concentrate) 1,000 mg PO DAILY vitamin B complex (B Complex-Vitamin B12 tablet) 1 tab PO DAILY Tobacco use date assessed: 06/29/25 Dental Screening Dental Screen Date: 01/20/25 HPI f/u HLD HPI Details Daria is 64-year-old female here today for a followup Pt has a pmhx significant for GERD, hyperlipidemia. She is now living care home life .. Hyperlipidemia:? Patient recently spent 1 month ago in [place] vacation and does admit to dietary indiscretion The patient reports a history of hypercholesterolemia, with the most recent total cholesterol level at 265 mg/dL and LDL at 190 mg/dL, which are higher than previous measurements. She attributes the increase to dietary habits during a recent vacation in [facility], where she consumed desserts frequently. Her previous cholesterol levels were 194 mg/dL, 215 mg/dL, and 222 mg/dL, with the last high reading of 260 mg/dL occurring in 2020. PLAN: Due to patient's family history coronary artery disease and stroke will start low-dose statin therapy to reduce her CV risk . Hypertension:? Noted elevated blood pressure readings today in office and has been at previous office visit. She does note better blood pressure readings at home though was not consistently checking. She is willing to start low-dose lisinopril for blood pressure control and monitor blood pressure Reviewed labs with patient and noted elevated liver enzymes Laboratory Tests 03/25/25 09/29/25 08:49 07:18 RBC 4.28 AST 41 H ALT 64 H Cholesterol 194 265 H LDL Cholesterol, C alc 111 H 190 H PFSH Medical History Left breast mass Right shoulder pain Surgical History History of D&C History of hysterectomy Family History Father No problems noted. Mother Stroke Family/Other Breast cancer Brother CAD (coronary artery disease) Social History Housing: House Alcohol intake: current Alcohol intake frequency: holidays/special occasions only Patient Tobacco Use Status: Never used Tobacco e-Cigarette/Vaping Use: Never Used Second Hand Smoke Exposure: No service: No Current occupational status: retired Current occupation: [employer] Current occupational exposures/hazards: No Cognitive needs: No Hearing needs: No Vision needs: Yes (Glasses) Questionnaire Thrive Questionnaire Date Thrive assessed: 12/17/24 I am a: Patient What is your living situation today?: I have a steady place to live Within the past 12 months, did the food you bought not last and you didn't have the money to get more?: Never true Within the past 12 months, did you worry whether your food would run out before you got money to buy more?: Never true Do you have trouble paying for medicines?: No Do you have trouble getting transportation to medical appointments?: No Do you have trouble paying your heating and electricity bill?: No Do you have trouble taking care of your child, family member or friend?: No Do you have trouble with day-to-day activities such as bathing, preparing meals, shopping, managing finances, etc.?: No Are you currently unemployed and looking for a job?: No Are you interested in more education?: I choose not to answer this question Please select the resources that you would like help with: None Currently or been in a relationship where the following occur: No concerns reported THRIVE Score: 0 MELODIE-7 AMB Questionnaire MELODIE-7 Date MELODIE - 7 assessed: 12/23/24 Source: Developed by Drs. Jordy Hampton, Hannah Reveles, Yusef Mejias and colleagues, with an educational teddy from [employer]. Review of Systems Const Denies headache(s) Eyes Denies loss of vision ENT Denies vertigo, Denies dizziness, Denies headache(s) and Denies sore throat Card Denies chest pain, Denies leg edema and Denies lightheadedness Resp Denies cough, Denies hemoptysis and Denies wheezing GI Denies abdominal pain, Denies melena, Denies constipation, Denies diarrhea and Denies vomiting Denies urinary frequency, Denies dysuria and Denies urinary urgency Musc Denies arthralgias, Denies joint swelling, Denies numbness and Denies tingling Neuro Denies Abnormal speech present, Denies behavioral changes, Denies vertigo, Denies dizziness, Denies headache(s), Denies loss of vision, Denies memory loss, Denies numbness and Denies tingling Psych Denies anxiety, Denies behavioral changes, Denies depression, Denies memory loss and Denies panic attacks Paras/Lymph Denies easy bleeding and Denies easy bruising Aller/Immun Denies wheezing Physical exam (Primary Care) Vital Signs: Last Vital Signs Temp 97.5 F 06/29/25 09:34 Pulse 91 06/29/25 09:34 BP 150/90 H 06/29/25 10:02 Pulse Ox 98 06/29/25 09:34 Oxygen Delivery Method Room Air 06/29/25 09:34 BMI result Body Mass Index 27.5 Tobacco/Smoking Status: Tobacco use Status Tobacco use date assessed 06/29/25 06/29/25 09:39 Patient Tobacco Use Status Never used Tobacco 06/29/25 09:39 Tobacco use type 12/17/23 08:44 e-Cigarette/Vaping Use Never Used 06/29/25 09:39 Thrive Assessment: Date of Thrive Assessment Date Thrive assessed 12/17/24 06/29/25 09:39 Currently or been in a relationship where the following occur: No concerns reported Const General: healthy appearing, no acute distress, alert and awake Nutritional Appearance: well nourished Orientation/consciousness: oriented to person, oriented to place and oriented to time HENMT Ears: TM's normal bilaterally General nose exam: Normal nasal mucous membranes and turbinates present Eyes Conjunctivae: conjunctivae normal Sclerae: sclerae normal Pupils: Equal, round and reactive pupils present Neck Neck: Yes no lymphadenopathy and Yes no JVD Thyroid: Thyroid normal Carotids: no bruits Resp Effort & Inspection: normal respiratory effort and not tachypneic Auscultation: no crackles, no rales, no rhonchi and no wheezes Cardio Rate: regular rate Rhythm: regular rhythm Heart sounds: no murmurs and normal S1 and S2 GI Palpation (GI): Soft to palpation, nontender, no hepatomegaly and no splenomegaly Auscultation: normal bowel sounds Skin General skin exam: no rashes or lesions noted and dry skin Neuro General: oriented to person, oriented to place and oriented to time Cranial nerves: Yes Equal, round and reactive pupils present Speech: No Abnormal speech present Gait exam (Neuro): Normal gait present Motor exam (neuro): no tremor noted Extrem Right upper extremity: full ROM Left upper extremity: full ROM Right lower extremity: full ROM; no edema Left lower extremity: full ROM; no edema Psych Mental Status: mental status grossly normal Speech and movement: Normal speech and movement present Affect: normal affect Attitude: cooperative Thought process: Normal thought process present Coding Level of Care Code Est Pt Level 4 (58245) Diagnoses Mixed hyperlipidemia E78.2 Hyperlipidemia type: mixed hyperlipidemia Elevated liver enzymes R74.8 Primary hypertension I10 Hypertension type: primary hypertension Assessment & Plan Assessment & Plan (1) Hyperlipidemia: Code(s): E78.5 - Hyperlipidemia, unspecified Category: Medical Qualifiers: Hyperlipidemia type: mixed hyperlipidemia Qualified Code(s): E78.2 - Mixed hyperlipidemia Plan: The patient is advised to consider starting a low-dose cholesterol medication, such as simvastatin, to manage her hypercholesterolemia and reduce cardiovascular risk. She is encouraged to continue lifestyle modifications, including dietary changes and regular exercise, to further manage her cholesterol levels. (2) Elevated liver enzymes: Code(s): R74.8 - Abnormal levels of other serum enzymes Category: Medical Plan: Noted elevated liver enzymes likely secondary to diet indiscretion. Will recheck liver enzymes upon next office visit. She will continue working on lifestyle modifications (3) HTN (hypertension): Code(s): I10 - Essential (primary) hypertension Category: Medical Qualifiers: Hypertension type: primary hypertension Qualified Code(s): I10 - Essential (primary) hypertension Plan: For hypertension, the patient is advised to monitor her blood pressure regularly and consider starting a low-dose antihypertensive medication, such as lisinopril, if lifestyle changes are insufficient. The goal is to maintain blood pressure below 140/90 mmHg to reduce cardiovascular risk. Orders: Orders Lipid Panel Today E78.2 - Mixed hyperlipidemia Complete Blood Count no Diff Today E78.2 - Mixed hyperlipidemia Comprehensive [place]. Panel Fast Today E78.2 - Mixed hyperlipidemia Medications: New simvastatin 10 mg PO DAILY 90 tabs 1RF 90 days E78.2 - Mixed hyperlipidemia lisinopril 2.5 mg PO DAILY 90 tabs 1RF 90 days I10 - Essential (primary) hypertension Patient Instructions: Goal: LDL to be below 130, blood pressure to be consistently below 140/90 Barriers: Adherence to good eating habits
[2025-06-29 10:02] VITALS: BP 150/90
--- OUTSIDE RECORDS SUMMARY | 2025-06-29 10:15 | XMS_ITS | Patient Health Record ---
[facility] Address [address] [place] [address] Care Team Providers Care Seaming Inspector Name Role Phone Chi Anglin MD Primary Care Provider Antwon Gray [phone] Reason For Referral No Information Medications Medication [...] Status Risk Notes Problem Acquired hallux valgus (98001531) Hallux valgus (acquired), left foot (M20.12) Active confirmed Problem Acquired hallux valgus (94058767) Hallux valgus (acquired), right foot (M20.11) Active confirmed Problem Acquired hammer toe of right foot (6144531978040 105) Other hammer toe(s) (acquired), right foot (M20.41) Active confirmed Problem Acquired hammer toe of left foot (5321253767948 103) Other hammer toe(s) (acquired), left foot (M20.42) Active confirmed Plan Of Treatment Pending Test Test Name Order Date X ray : Foot, right 3V 03/18/2018 Insurance Providers Payer Name Payer Address Payer Phone Subscriber Number Group Number Insured Name Patient Relationship to Insured Coverage Start Date Coverage End Date [facility] [address] [place] [address] [phone] [id number] [phone] [id number] Daria Heart Self - patient is the insured 6 Medical (General) History Medical History History ICD Code Broken bones CAD (Cholesterol) Reflux ( GERD) Measles Chicken pox Surgical History Surgery Date(Month/Year) hysterectomy 12/2013
--- OUTSIDE RECORDS SUMMARY | 2025-06-29 10:15 | XMS_ITS | Patient Health Record ---
Author Organization [facility] Address [address] [place] [address] Care Team Providers Care Bootmaker Hand Name Role Phone Linnette(inactive) Chi WILDER Primary Care Provider U Jordy Thapa Unavailable [phone] Reason For Referral No Information Medications Medication SIG (Take, Route, Frequency, Duration) Notes Start Date End Date Status Fish Oil Active Calcium Active Garlic Active Problems Problem Type SNOMED Code ICD Code Onset Dates Problem Status W/U Status Risk Notes Problem [id number] Encounter for screening for malignant neoplasm of colon (Z12.11) Active confirmed Problem Screening for malignant neoplasm of rectum (939269102) Encounter for screening for malignant neoplasm of rectum (Z12.12) Active confirmed Problem 87329135 Preprocedural examination (Z01.818) Active confirmed Plan Of Treatment Pending Test Test Name Order Date GI BIOPSY 09/06/2016 Future Test Test Name Order Date COLONOSCOPY 06/07/2016 Insurance Providers Payer Name Payer Address Payer Phone Subscriber Number Group Number Insured Name Patient Relationship to Insured Coverage Start Date Coverage End Date [facility] [address] [place] [address] [id number] [id number] Self - patient is the insured Medical (General) History Medical History History ICD Code Denies UT,DM,CVA,Lung disease,renal dise ase Surgical History Surgery Date(Month/Year) Partial hysterectomy
== END 2025-06-29 10:16 | disposition home or self-care (01) ==
LOC: HO.HMCH 09:28
PROVIDERS: PCP Physician Assistant; Visit Provider Physician Assistant
DX: E78.2 Mixed hyperlipidemia (principal); R74.8 Abnormal levels of other serum enzymes; I10 Essential (primary) hypertension